=== PATIENT | female | born 1940 | race Caucasian/White ===

== ENCOUNTER → 2020-01-10 | Outpatient (CLI) | payer MEDICARE, OTHER ==
[2020-01-10 18:42] LABS: Bun/Creatinine Ratio 24.3 (12.0-20.0); Calcium, Blood 9.4 mg/dL (8.5-10.1); Creatinine, Blood 1.03 mg/dL (0.40-1.00); Potassium, Blood 3.9 mmol/L (3.5-5.5)
== END | disposition home or self-care (01) ==
LOC: LAB SHORT 18:31 → LAB EV 18:31
PROVIDERS: Physician Assistant Medical
DX: I10 Essential (primary) hypertension (principal)
CPT/HCPCS: 80048

== ENCOUNTER → 2020-04-18 | Outpatient (CLI) | payer MEDICARE, OTHER ==
[2020-04-18 10:59] LABS: Calcium, Blood 9.3 mg/dL (8.5-10.1); Creatinine, Blood 1.39 mg/dL (0.40-1.00); Potassium, Blood 3.8 mmol/L (3.5-5.5)
== END | disposition home or self-care (01) ==
LOC: LAB EV 10:46 → LAB SHORT 10:46
PROVIDERS: Physician Assistant
DX: I10 Essential (primary) hypertension (principal); R73.9 Hyperglycemia, unspecified
CPT/HCPCS: 80048; 83036

== ENCOUNTER → 2020-06-26 | Outpatient (CLI) | payer MEDICARE, OTHER ==
[2020-06-30 11:45] LABS: Stool Occult Bld Immuno 1 Negative (NEGATIVE)
== END ==
LOC: PLD 23:30 → LAB SHORT 23:30
PROVIDERS: Nurse Practitioner Family
DX: Z12.11 Encounter for screening for malignant neoplasm of colon (principal)
CPT/HCPCS: G0328

== ENCOUNTER → 2020-11-15 | Outpatient (CLI) | payer MEDICARE, OTHER ==
[2020-11-15 11:55] LABS: Microalbumin, Urine Quant. 14.5 mg/L (0.000-20.000); Protein, Urine Quantitative 19.4 mg/dL (0.0-11.9)
== END | disposition home or self-care (01) ==
LOC: LAB 07:00 → LAB SHORT 07:00
PROVIDERS: Internal Medicine Nephrology
DX: N18.30 Chronic kidney disease, stage 3 unspecified (principal); D63.1 Anemia in chronic kidney disease; N25.81 Secondary hyperparathyroidism of renal origin; E55.9 Vitamin D deficiency, unspecified; E78.00 Pure hypercholesterolemia, unspecified; D51.8 Other vitamin B12 deficiency anemias; D52.8 Other folate deficiency anemias; D50.9 Iron deficiency anemia, unspecified; R76.9 Abnormal immunological finding in serum, unspecified; R94.5 Abnormal results of liver function studies; R94.6 Abnormal results of thyroid function studies
CPT/HCPCS: 81050; 82043; 82570; 84156

== ENCOUNTER 2021-10-16 13:27 | Inpatient (IN) | payer MEDICARE, OTHER ==
[~2021-10-16] VITALS: Ht 162.6 cm; Wt 98.4 kg
[2021-10-16 15:45] LABS: BASOPHILS ABSOLUTE AUTO 0.03 K/mm3 (0.00-0.23); BASOPHILS PERCENT AUTO 1 % (0-2); EOSINOPHILS ABSOLUTE AUTO 0.05 K/mm3 (0.00-0.68); EOSINOPHILS PERCENT AUTO 1 % (0-6); Hematocrit 38.3 % (33.0-51.0); Hemoglobin 11.9 g/dL (11.5-16.0); IMMATURE GRAN ABSOLUTE AUTO 0.01 K/mm3 (0.00-0.10); IMMATURE GRAN PERCENT AUTO 0 % (0-1); LYMPHOCYTES ABSOLUTE AUTO 0.42 K/mm3 (0.84-5.20); LYMPHOCYTES PERCENT AUTO 11 % (21-46); MONOCYTES ABSOLUTE AUTO 0.22 K/mm3 (0.16-1.47); MONOCYTES PERCENT AUTO 6 % (4-13); Mean Corpuscular HGB 26.2 pg (26.0-34.0); Mean Corpuscular HGB Conc 31.1 g/dL (31.5-36.5); Mean Corpuscular Volume 84 fL (80-100); Mean Platelet Volume 12.1 fL (9.1-12.4); NEUTROPHILS ABSOLUTE AUTO 3.25 K/mm3 (1.96-9.15); NEUTROPHILS PERCENT AUTO 82 % (41-73); Platelet Count 106 K/mm3 (150-400); RDW Coefficient Variation 16.1 % (11.7-14.2); RDW Standard Deviation 49.8 fL (35.1-46.3); Red Blood Cell Count 4.55 M/mm3 (3.80-5.20); White Blood Cell Count 3.98 K/mm3 (4.00-11.30)
[2021-10-16 15:59] LABS: Albumin, Blood 2.9 g/dL (3.4-5.0); Albumin/Globulin Ratio 0.6 (0.8-1.8); Bilirubin, Total 0.6 mg/dL (0.1-1.0); Bun/Creatinine Ratio 35.4 (12.0-20.0); Calcium, Blood 9.5 mg/dL (8.5-10.1); Creatinine, Blood 0.93 mg/dL (0.40-1.00); Globulin, Blood 4.6 g/dL (2.2-4.0); Potassium, Blood 3.9 mmol/L (3.5-5.5); Total Protein, Blood 7.5 g/dL (6.4-8.2)
[2021-10-16 20:31] LABS: Source, Urine Clean Catch
[2021-10-16 20:34] LABS: Bilirubin, Urine Neg (Neg); Blood, Urine 2+ (Neg); Glucose Qualitative, Urine Neg (Neg); Ketones, Urine 1+ (Neg); Leukocyte Esterase, Urine 1+ (Neg); Nitrite, Urine Pos (Neg); Protein, Urine 1+ (Neg); Urobilinogen, Urine NORM (Normal)
[2021-10-16 20:42] LABS: Appearance, Urine Hazy (Clear); Color, Urine Yellow (P-Yellow)
[2021-10-16 20:43] LABS: Amorphous Light (0-Heavy); Bacteria Many /hpf; Squamous Epithelial Cells Rare /hpf (Few); Transitional Epithelial Cells Few /hpf (0-Rare)
[2021-10-17 00:10] LABS: C-REACTIVE PROTEIN, EXT RANGE 4.8 mg/dL (0.000-0.300)
--- NOTE | 2021-10-17 01:15 | NUR ---
ADMIT ASSESSMENT: PT ADMITTED TO ICU 3. PT AROUSABLE, BUT LOOKS AT YOU VERY CONFUSED AND NOT FOLLOWING DIRECTIONS AND NOT ASWERING QUESTIONS. MANPREET AT 2MM BILAT AND SLUGGISH. LS DIMINISHED T/O WITH EXP WHEEZES BILAT BASES WITH BIOX 94% ON RA. HEART SOUNDS DISTANT WITH MONIOTR SHOWING SR WITH 1ST DEGREE BLOCK AND BBB AND PROLONGED QT WITH HR 72. SKIN WARM WITH MULTIPLE WOUNDS ON FACE, ARMS LEGS AND GROIN. WAS TAKEN FOR CT OF HEAD AND BILAT LE'S. TEMP 93.5 WITH SCOTT HUGGER ON AND RUNNING. 20G IV LAC WITH NS BOLUS AND VANCO RUNNING. 20G IV RAC S/L. STRONG RADIAL PULSES BILAT. BILAT DP AND PT PULSES WITH DOPPLER ONLY. BILAT HAND EDEMA 2+ WITH RED HANDS. BILAT LE EDEMA 3+ AND RED. ABD R/S WITH BTX4. MARSH TEMP PROBE IN AND DRAINING DARK YELLOW URINE. BROUGHT SON, FILOMENA, BACK TO GET INFO FROM HIM AND HAVE HIM SIGN FORMS. ASKED PT IF SHE RECOGNIZED WHO HE WAS, SHE NODDED YES AND SAID YES. WHEN ASKED IF SHE KNEW WHERE SHE WAS, SHE QUIETLY SPOKE THE HOSPITAL. WHEN ASKED WHO THE PRESIDENT WAS SHE COULDN'T ANSWER ME. I ASKED HER IF IT WAS [facility], SHE SAID NO, THEN THE SON ASKED HER IF IT WAS SIL[facility], SHE SMILED AND SAID YES. PT'S MENTAION SLOWLY IMPROVING.
[2021-10-17 01:19] LABS: Free Thyroxine 1.03 ng/dL (0.70-1.60); Thyroid Stimulating Hormone 3.54 uIU/mL (0.360-4.800)
[2021-10-17 01:53] LABS: BASOPHILS ABSOLUTE AUTO 0.02 K/mm3 (0.00-0.23); BASOPHILS PERCENT AUTO 1 % (0-2); EOSINOPHILS ABSOLUTE AUTO 0.03 K/mm3 (0.00-0.68); EOSINOPHILS PERCENT AUTO 1 % (0-6); Hematocrit 33.7 % (33.0-51.0); Hemoglobin 10.6 g/dL (11.5-16.0); IMMATURE GRAN ABSOLUTE AUTO 0.01 K/mm3 (0.00-0.10); IMMATURE GRAN PERCENT AUTO 0 % (0-1); LYMPHOCYTES ABSOLUTE AUTO 0.41 K/mm3 (0.84-5.20); LYMPHOCYTES PERCENT AUTO 14 % (21-46); MONOCYTES ABSOLUTE AUTO 0.13 K/mm3 (0.16-1.47); MONOCYTES PERCENT AUTO 5 % (4-13); Mean Corpuscular HGB Conc 31.5 g/dL (31.5-36.5); Mean Corpuscular Volume 83 fL (80-100); Mean Platelet Volume 12.9 fL (9.1-12.4); NEUTROPHILS ABSOLUTE AUTO 2.32 K/mm3 (1.96-9.15); NEUTROPHILS PERCENT AUTO 80 % (41-73); Platelet Count 85 K/mm3 (150-400); RDW Coefficient Variation 16.1 % (11.7-14.2); RDW Standard Deviation 48.8 fL (35.1-46.3); Red Blood Cell Count 4.07 M/mm3 (3.80-5.20); White Blood Cell Count 2.92 K/mm3 (4.00-11.30)
[2021-10-17 02:07] LABS: Albumin, Blood 2.4 g/dL (3.4-5.0); Albumin/Globulin Ratio 0.6 (0.8-1.8); Bilirubin, Total 0.5 mg/dL (0.1-1.0); Calcium, Blood 8.8 mg/dL (8.5-10.1); Creatinine, Blood 0.91 mg/dL (0.40-1.00); Globulin, Blood 3.7 g/dL (2.2-4.0); Potassium, Blood 3.8 mmol/L (3.5-5.5); Total Protein, Blood 6.1 g/dL (6.4-8.2)
[2021-10-17 02:37] LABS: U Amphetamine Screen Not Detected; U Barbituate Screen Not Detected; U Benzodiazapine Screen Not Detected; U Buprenorphine Screen Not Detected; U Cannabinoids Screen Not Detected; U Cocaine Screen Not Detected; U Methadone Screen Not Detected; U Methamphetamine Screen Not Detected; U Opiates Screen Not Detected; U Oxycodone Screen Not Detected; U Phencyclidine Screen Not Detected; U Propoxyphene Screen Not Detected
--- NOTE | 2021-10-17 06:05 | NUR ---
SHIFT SUMMARY: PT RESTING COMFORTABLY THROUGHOUT THE NIGHT WITH INTERMITTENT MOANS. DENIES PAIN WHEN AROUSED. TAKE A BIT TO FULLY AROUSE, BUT FALLS BACK ASLEEP QUICKLY. BP'S HAVE BEEN SBP 80'S-100'S. NOTIFIYIN DR. RAMOS OF BP'S FALLING. ORDER FOR 500CC IV BOLUS.
--- NOTE | 2021-10-17 08:30 | NUR ---
AM NOTE.... ASSUMED CARE OF PT AT 0700, THE PT IS RESPONDING TO VERBAL STIMULI BUT NOT ANSWERING QUESTIONS THE PT LOOKS AT STAFF WITH A BLANK STARE. THE PT IS UNABLE TO FOLLOW COMMANDS SUCH SQUEEZE MY HANDS OR WRIGGLE YOUR TOES. THE PT IS IN SR IN THE 70'S W/ FIRST DEGREE AND BBB WITH OCC PCVs. THE PT HAS 3+ PITTING EDEMA TO HER BLE WELL SEVERAL WOUNDS (SEE PICTURES IN THE CHART). THE PT IS ON RA WITH O2 SATS >90% L/S DIM T/O COARSE IN THE BASES RR 18-20. BT PRESENT AND VERY HYPOACTIVE, ABD IS SOFT AND NONTENDER TO PALPATION. THE PT'S MARSH IS PATENT AND DRAINING TO GRAVITY. THE PT'S BPs HAVE BEEN SOFT BUT STABLE. WILL CONTINUE TO MONITOR.
--- NOTE | 2021-10-17 09:48 | NUR ---
PT UPDATE.... THE PT'S TEMP FROM THE TEMP MARSH 95.0 THE PT'S TEMPORAL TEMP WAS 96.9 A SCOTT HUGGER WAS PLACED ON THE PT. SEVERAL FAMILY MEMBERS AT THE BEDSIDE THIS AM THEY WERE UPDATED BY THIS RN ON THE PT'S CONDITION AND PLAN OF CARE. AT 0830: DR. LYNNE AT THE BEDSIDE TO ASSESS THE PT, NEW ORDERS OBTAINED FOR SILVADENE CREAM FOR THE WOUNDS ON THE PT'S BLE. WILL CONTINUE TO MONITOR.
--- NOTE | 2021-10-17 10:57 | NUR ---
Pt resting in bed with her eyes closed and remains with her eyes closed throughout the visit. Pt's son Joey, and Pt's grandson Adam at bedside. Primary RN Magaly and clinical nursing manager at bedside. Magaly provides update and answers questions. Joey reports Pt lives at home with her youngest daughter. He reports youngest daughter struggles with some emotional and mental issues. He states that she probably isn't the best candidate to continue caring for Pt. He reports Pt has invested in assisted insurance which will assist with caregiver support or placement. Discussed Pt's code status. Educated on life sustaining treatment including risk factors and implications of CPR. Joey reports plan to discuss further with his sister (Pt's oldest daughter) when she arrives to the hospital. Continued therapeutic listening. Palliative Care will remain available.
--- NOTE | 2021-10-17 11:32 | NUR ---
PT UPDATE.... WHILE THE PT WAS SLEEPING THE PT HAD AN APNEIC EPISODE OF APROX 30 SECONDS, THE PT'S O2 SATS DROPPED DOWN TO 69% WITH A GOOD WAVE FORM. THE PT WAS PLACED ON 5L NC VIA THE MOUTH TO IMPOVE HER O2 SATS, ONCE THEY WERE IMPROVED TO >90% THE O2 WAS TITRATED DOWN TO 2L NC WITH O2 SATS >90%. WILL CONTINUE TO MONITOR.
--- NOTE | 2021-10-17 12:51 | NUR ---
Spiritual Care Visit... Pt. is mostly unresponsive. Responding to a spiritual care request. Pts. son and grandson are present. Pt. displays evidence of awareness, but cannot communicate. Pts. son verbalized that this foster a decline in the pts. condition since previous day. Facilitate a life review. Family have strong ede support systems. Prayed with family. Family verbalized gratitude for the spiritual care visit.
--- NOTE | 2021-10-17 18:10 | NUR ---
SHIFT SUMMARY.... AT APROX 1400 THE PT WAS GIVEN A BED BATH AND THE PT'S DRESSINGS WERE CHANGED, DURING THIS THE PT STARTED TO WAKE UP MORE AND WAS ABLE TO ANSWER QUESTIONS. THE PT'S VS HAVE IMPROVED T/O THIS SHIFT. THE PT WAS GIVEN A BEDSIDE SWALLOW EVAL AND PASSED. THE PT'S FAMILY HAS BEEN AT THE BEDSIDE MOST OF THIS SHIFT. THE PT HAS NOT HAD A BM. AT APROX 1645 THE PT'S CBG WAS CHECKED AND IT WAS CRITIALLY LOW AT 38 SHE WAS GIVEN 500MLS OF D5 IV AND SOME ORANGE JUICE. THE PT HAS NOT HAD A BM THIS SHIFT. WILL CONTINUE TO MONITOR UNTIL REPORT IS GIVEN TO ONCOMING RN.
--- NOTE | 2021-10-17 19:30 | NUR ---
ASSUMPTION OF CARE NOTE PT TEMP VIA MARSH 94.5. SCOTT OLIVAS PLACED ON PT. FAMILY AT BEDSIDE.
[2021-10-17 22:39] LABS: Vancomycin, Trough 21.9 ug/mL (5.0-10.0)
--- NOTE | 2021-10-18 01:29 | NUR ---
PT MIDNIGHT BLOOD GLUCOSE IN THE 30S. DR RANGEL NOTIFIED. ORDERS GIVEN. SUBSEQUENT BLOOD GLUCOSE AT 0118 56, D5 CONTINUES TO INFUSE PER MD ORDER.
[2021-10-18 03:18] LABS: BASOPHILS ABSOLUTE AUTO 0.03 K/mm3 (0.00-0.23); BASOPHILS PERCENT AUTO 1 % (0-2); EOSINOPHILS ABSOLUTE AUTO 0.02 K/mm3 (0.00-0.68); EOSINOPHILS PERCENT AUTO 1 % (0-6); Hematocrit 33.5 % (33.0-51.0); Hemoglobin 10.6 g/dL (11.5-16.0); IMMATURE GRAN ABSOLUTE AUTO 0.01 K/mm3 (0.00-0.10); IMMATURE GRAN PERCENT AUTO 0 % (0-1); LYMPHOCYTES ABSOLUTE AUTO 0.46 K/mm3 (0.84-5.20); LYMPHOCYTES PERCENT AUTO 14 % (21-46); MONOCYTES ABSOLUTE AUTO 0.21 K/mm3 (0.16-1.47); MONOCYTES PERCENT AUTO 6 % (4-13); Mean Corpuscular HGB 26.5 pg (26.0-34.0); Mean Corpuscular HGB Conc 31.6 g/dL (31.5-36.5); Mean Corpuscular Volume 84 fL (80-100); NEUTROPHILS ABSOLUTE AUTO 2.63 K/mm3 (1.96-9.15); NEUTROPHILS PERCENT AUTO 78 % (41-73); Platelet Count 87 K/mm3 (150-400); RDW Coefficient Variation 16.7 % (11.7-14.2); RDW Standard Deviation 50.9 fL (35.1-46.3); White Blood Cell Count 3.36 K/mm3 (4.00-11.30)
[2021-10-18 03:19] LABS: Mean Platelet Volume 11.9 fL (9.1-12.4)
[2021-10-18 03:31] LABS: Bun/Creatinine Ratio 28.6 (12.0-20.0); Calcium, Blood 8.3 mg/dL (8.5-10.1); Creatinine, Blood 1.12 mg/dL (0.40-1.00)
--- NOTE | 2021-10-18 04:30 | NUR ---
DR RAMOS NOTIFIED OF PT DROPPING GLUCOSE AND LOW URINE OUTPUT. ORDERS GIVEN. SEE EMAR
--- NOTE | 2021-10-18 06:29 | NUR ---
DR RAMOS NOTIFIED OF CRITICAL LOW BLOOD GLUCOSE. ORDERS GIVEN. SEE EMAR
[2021-10-18] MEDS ORDERED: FURO20 PO (07:34)
[2021-10-18] MEDS ORDERED: LOSARTAN POTAS100 M1 PO (07:34)
[2021-10-18] MEDS ORDERED: METO50ER PO (07:35)
[2021-10-18] MEDS ORDERED: Amaryl1 MG PO (07:35)
[2021-10-18] MEDS ORDERED: TRIA50 PO (07:36)
[2021-10-18] MEDS ORDERED: CALC.25 PO (07:36)
[2021-10-18] MEDS ORDERED: POTA10T PO (07:37)
--- NOTE | 2021-10-18 07:58 | NUR ---
AM NOTE... ASSUMED CARE OF PT AT 0700, THE PT IS RESPONDING TO PAINFUL STIMULI WITH MOANS AND GROSS MOVEMENT OF HER ARMS, THE PT DOES ATTEMPT TO OPEN HER EYES BUT IS UNABLE TO FOCUS FOR FOLLOW COMMANDS. THE PT IS ON 2L NC WITH O2 SATS >92% L/S EXP WHEEZES HEARD T/O THE UPPER AND RIGHT MID LOBE AND DIM IN THE BILATERAL LOWER LOBES, THE PT'S RR IS 18-20 AND SHALLOW. THE PT IS IN SR W/FIRSTDEGREE, BBB AND OCC PVCs IN THE 60'S-70'S, THE PT'S BP IS SOFT BUT MAPS ARE >65 BUT SOME SBPs ARE 80'S-90'S. THE PT HAS 4+ EDEMA TO HER BLE, THIS HAS INCREASED FROM YESTERDAY, THE PT'S WOUNDS ARE WHEEPING MORE THAN YESTERDAY AND THIS RN HAS NOTED MORE OF THE PT'S DRY SCABS HAVE BECOME WET AND WHEEPY. THE BOTTOM PART OF THE LARGE BLISTER ON THE TOP OF THE PT'S LEFT GREAT TOE HAS STARTED TO DRAIN. BT PRESENT AND VERY HYPOACTIVE, ABD IS SOFT BUT TENDER TO PALPATION. THE PT'S MARSH IS PATENT AND DRAINING TO GRAVITY. WILL CONTINUE TO MONITOR.
--- NOTE | 2021-10-18 17:40 | NUR ---
SHIFT SUMMARY.... NO ACUTE NEGATIVE CHANGES NOTED THIS SHIFT. THE PT'S VS HAVE BEEN STABLE T/O THIS SHIFT. THE PT HAS BEEN AWAKE AND INTERACTING WITH HER FAMILY AND STAFF SINCE LATE THIS MORNING. THE PT'S DRESSINGS ON HER LEGS WERE CHANGED BY THIS RN AND SHE WAS GIVEN A BED BATH/LINEN CHANGE. THE PT WAS CHANGED TO AN ADA REGULAR DIET AND HAS BEEN TOLERATING THIS WELL. SHE IS STILL ON A D5 W/ 1/2 NS RUNNING AT 75MLS/HR THE PT'S LAST CBG WAS 81. THE PT'S MARSH IS PATENT AND DRAINING TO GRAVITY, SHE HAS NOT HAD A BM THIS SHIFT. THE PT IS TO BE NPO AFTER MIDNIGHT FOR A HIDA SCAN AT 0800 TOMORROW. THE PT WAS ABLE TO FEED HERSELF DINNER WITH MINIMAL HELP FROM STAFF OR FAMILY. THE PT HAS BEEN TURNED Q2 HRS THIS SHIFT. CALL LIGHT IN REACH WILL CONTINUE TO MONITOR UNTIL REPORT IS GIVEN TO ON COMING RN.
--- NOTE | 2021-10-18 18:36 | NUR ---
PT UPDATE.... WHILE DOING WOUND CARE THIS RN WAS CLEANING THE WOUNDS ON THE PT'S BLE, THIS RN WAS USING WOUND CLEANSER SPRAY AND NOTICED THAT THE SCABS THAT HAD SLOUGHED OFF WERE FULL OF A LARGE AMOUNT OF LONG CAT HAIR, FAMILY VERIFIED THAT THE PT DID HAVE A CAT. LARGE AMOUNTS OF CAT HAIR WAS NOTICED IN ALL OF THE PT'S WOUNDS. WILL CONTINUE TO MONITOR.
--- NOTE | 2021-10-18 20:00 | NUR ---
Assumed care after report recieved. Family at bedside, left for night. Assessment complete. discussed plan of care for night. able to answer orientation questions but does not recall anything leading up to hospitalization. Slow to respond to questions.
[2021-10-19 05:38] LABS: Vancomycin, Trough 25.1 ug/mL (5.0-10.0)
--- NOTE | 2021-10-19 05:54 | NUR ---
Blood sugars stable through out shift. Dressings changed to bilat lower extremities at beginning of shift. Temp at start of shift low, warming blanket applied. Temp increased to 97 degrees. Vanco trough this am high. Order to dc this am dose of vanco recieved from pharmacist.
--- NOTE | 2021-10-19 08:38 | NUR ---
0730: RN COMPLETED SBAR REPORT. ASSUMED CARE OF PT. 0745: CONTACTED DR. SANCHEZ WHO STATES NO NEED AT THIS TIME TO MEDICATE PRIOR TO HIDA SCAN. NUCLEAR RAD NOTIFIED; STEEL TURNER AT BEDSIDE. UTILIZED LIFT TO TRANSFER PT TO STRETCHER, PT TOLERATED WELL. TELE NOTIFIED TO MONITOR PT DURING SCAN. PT AAOX4, DENIES PAIN, PLEASANT, FOLLOWS COMPLEX COMMANDS. NO DISTRESS NOTED. PT TO NRAD FOR SCAN.
--- NOTE | 2021-10-19 10:24 | NUR ---
0935: PT RETURNED FROM HIDA SCAN, TOLERATED WELL. NO DISTRESS NOTED, VSS.
--- NOTE | 2021-10-19 17:15 | NUR ---
SHIFT SUMMARY NEURO: PT ALERT AND ORIENTED X 4, CONVERSIVE, COOPERATIVE, PLEASANT AFFECT, DENIED PAIN THROUGHOUT SHIFT. FOLLOWING COMPLEX COMMANDS. CARDIAC: 1ST DEG HB W/ BBB CONTINUES. NORMOTENSIVE. AFEBRILE, TEMP NOW WNL AFTER USING SCOTT HUGGER UNTIL 1200. VANC TROUGH TONIGHT AT 2100. ZOSYN CONTINUES. BGL BETWEEN 100-129 THROUGHOUT SHIFT. RESP: RA. OCCASIONAL NONPRODUCTIVE COUGH. SPO2 96%. GI: NO BM TODAY. NPO, CALLED DR. CUEVA AND LEFT MESSAGE BEFORE 1700 TO REQUEST DIETARY ORDER CHANGE CONSIDERATION. NO RESPONSE YET OF THIS WRITING. HIDA SCAN WITH RESULTS NOT REQUIRING ACUTE INTERVENTION PER VERBAL DISCUSSION WITH DR. GLYNN. : 450 UOP DURING SHIFT. URINE STILL CLOUDY/SEDIMENTARY. INTEG: BETADINE APPLIED TO WOUNDS. SILVADENE TO OPEN WOUNDS. CHECKED WOUNDS TO BILATERAL LEGS, DRESSINGS REMAIN IN PLACE. FULL BEDBATH PERFORMED WITH ANTIFUNGAL POWDER TO GROIN/LEGS. MK: PHYSICAL THERAPY PERFORMED WITH KAREL, PT TOLERATED WELL. PLAN FOR DISCHARGE TO REHAB FACILITY. PSYCH: FAMILY PRESENT THROUGHOUT SHIFT. NO IMMEDIATE CONCERNS.
--- NOTE | 2021-10-19 18:26 | NUR ---
DR. CUEVA CALLED AND REQUESTED PLACEMENT OF REGULAR DIET ORDER AND TO DISCONTINUE D5 1/[address] NS ORDER FOR CARRIER.
--- NOTE | 2021-10-19 23:40 | NUR ---
summary of care: assessment complete. more alert tonight. wound care done to bilat lower extremities. left heel slight blanchable redness. bilat heel protectors applied. feet floated on pillows. advised patient and called son Mikhail to advise will transfer to medical floor room 341. Anette HARVEY called and report given. Transferred via bed to room 341
--- NOTE | 2021-10-19 23:54 | NUR ---
ASSUMED CARE OF THE PATIENT WHEN TRANSFERRED TO ROOM 341. SHE IS AWAKE, ALERT, AND ORIENTED. DENIES PAIN OR SHORTNESS OF BREATH.
--- NOTE | 2021-10-20 05:31 | NUR ---
SHIFT SUMMARY PATIENT ALERT AND ORIENTED. HAD NO COMPLAINTS OF PAIN OR SHORTNESS OF BREATH. NO ACUTE ISSUES NOTED OVERNIGHT. CALL LIGHT WITHIN REACH. REPORT GIVEN TO ONCOMING RN.
[2021-10-20 08:31] LABS: BASOPHILS ABSOLUTE AUTO 0.03 K/mm3 (0.00-0.23); BASOPHILS PERCENT AUTO 1 % (0-2); EOSINOPHILS ABSOLUTE AUTO 0.06 K/mm3 (0.00-0.68); EOSINOPHILS PERCENT AUTO 2 % (0-6); Hematocrit 36.2 % (33.0-51.0); Hemoglobin 11.2 g/dL (11.5-16.0); IMMATURE GRAN ABSOLUTE AUTO 0.01 K/mm3 (0.00-0.10); IMMATURE GRAN PERCENT AUTO 0 % (0-1); LYMPHOCYTES ABSOLUTE AUTO 0.57 K/mm3 (0.84-5.20); LYMPHOCYTES PERCENT AUTO 20 % (21-46); MONOCYTES ABSOLUTE AUTO 0.29 K/mm3 (0.16-1.47); MONOCYTES PERCENT AUTO 10 % (4-13); Mean Corpuscular HGB 26.4 pg (26.0-34.0); Mean Corpuscular HGB Conc 30.9 g/dL (31.5-36.5); Mean Corpuscular Volume 85 fL (80-100); Mean Platelet Volume 12.2 fL (9.1-12.4); NEUTROPHILS ABSOLUTE AUTO 1.94 K/mm3 (1.96-9.15); NEUTROPHILS PERCENT AUTO 67 % (41-73); Platelet Count 90 K/mm3 (150-400); RDW Standard Deviation 52.6 fL (35.1-46.3); Red Blood Cell Count 4.25 M/mm3 (3.80-5.20)
[2021-10-20 08:53] LABS: Bun/Creatinine Ratio 34.9 (12.0-20.0); Calcium, Blood 8.2 mg/dL (8.5-10.1); Creatinine, Blood 1.09 mg/dL (0.40-1.00); Potassium, Blood 3.9 mmol/L (3.5-5.5)
--- NOTE | 2021-10-20 14:18 | NUR ---
[facility] visit for advanced care planning conversation and assessment of s/s. Son, Mikhail, at bedside and gson also present. Pt receptive to conversation about her wishes and Son very interested in completing an AD and POLST. Pt states her Dr gave her a POLST previously but she didn't really know how to complete it. Pt denies pain or any other distressing s/s . I do not see any nonverbal indicators of pain, anxiety or distress. She is sleepy (after lunch) and dozes off at times but is easy to wake when son nudges her. Prior to my visit I case conferenced with KATHI BANKS on plan for relocating pt to [place] in an assisted living or other LTC facility. Son and pt confirm this plan during our conversation re: pt's wishes for care in the event she would suffer cardiac or respiratory failure. Pt and Mikhail would like to discuss further with Jerica coyle and revisit this tomorrow. I gave both a POLST and AD form with some instruction and explanation. I also gave them booklet, Hard Choices for [place] [employer] to review and generate further questions for their providers to help pt/family make decisions re: advanced care planning wishes. Plan to see pt again tomorrow.
--- NOTE | 2021-10-21 03:29 | NUR ---
FINGER WAVER SUMMARY REMAINS ON BEDREST SHE IS VERY WEAK IN HER LEGS. FEET ELEVATED ON PILLOW TO DECREASE SWELLING. ANTIBIOTICS ADMINISTERED ORDERED - SEE MAR FOR DETAILS. INCONT OF FECES AND CLEANED. GROIN AREA REMAINS REDDENED AND CREAM APPLIED. MARSH DRAINING VICENTA. HAS BEEN RESTING QUIETLY WITH FEW INTERRUPTIONS THIS SHIFT. CALL LIGHT IN REACH
[2021-10-21 05:29] LABS: BASOPHILS ABSOLUTE AUTO 0.03 K/mm3 (0.00-0.23); BASOPHILS PERCENT AUTO 1 % (0-2); EOSINOPHILS ABSOLUTE AUTO 0.05 K/mm3 (0.00-0.68); EOSINOPHILS PERCENT AUTO 2 % (0-6); Hematocrit 36.7 % (33.0-51.0); Hemoglobin 11.2 g/dL (11.5-16.0); IMMATURE GRAN ABSOLUTE AUTO 0.03 K/mm3 (0.00-0.10); IMMATURE GRAN PERCENT AUTO 1 % (0-1); LYMPHOCYTES ABSOLUTE AUTO 0.45 K/mm3 (0.84-5.20); LYMPHOCYTES PERCENT AUTO 16 % (21-46); MONOCYTES ABSOLUTE AUTO 0.26 K/mm3 (0.16-1.47); MONOCYTES PERCENT AUTO 9 % (4-13); Mean Corpuscular HGB 25.7 pg (26.0-34.0); Mean Corpuscular HGB Conc 30.5 g/dL (31.5-36.5); Mean Corpuscular Volume 84 fL (80-100); Mean Platelet Volume 12.5 fL (9.1-12.4); NEUTROPHILS ABSOLUTE AUTO 2.04 K/mm3 (1.96-9.15); NEUTROPHILS PERCENT AUTO 72 % (41-73); Platelet Count 102 K/mm3 (150-400); RDW Coefficient Variation 17.2 % (11.7-14.2); RDW Standard Deviation 52.9 fL (35.1-46.3); Red Blood Cell Count 4.36 M/mm3 (3.80-5.20); White Blood Cell Count 2.86 K/mm3 (4.00-11.30)
[2021-10-21 05:52] LABS: Bun/Creatinine Ratio 39.6 (12.0-20.0); Calcium, Blood 8.6 mg/dL (8.5-10.1); Creatinine, Blood 1.06 mg/dL (0.40-1.00)
[2021-10-21 06:07] LABS: Vancomycin, Random 13.4 ug/mL
[2021-10-21 11:23] LABS: Influenza A, PCR NEGATIVE (NEGATIVE); Influenza B, PCR NEGATIVE (NEGATIVE); Resp Syncytial Virus, PCR NEGATIVE (NEGATIVE); SARS-Cov-2 (COVID-19) PCR, MMC NEGATIVE (NEGATIVE)
[2021-10-21] MEDS ORDERED: ANTIFUNGAL POWD71 GM TOP (12:01)
[2021-10-21] MEDS ORDERED: SILVADENE TOP (12:02)
[2021-10-21] MEDS ORDERED: SULTRIDS PO (12:02)
--- NOTE | 2021-10-21 13:00 | NUR ---
Follow up visit for POLST completion. Son and pt had completed a POLST form but upon review of options chosen with pt decision made by pt, with son's support for pt to be DNR, limited interventions and son listed as proxy medical decision maker if pt is unable to make her wishes known or is not able to process info/make decisions. Pt remained sleepy off and on t/o visit but did participate well. Student RN and KATHI BANKS present for part of the visit and confirmation of POLST wishes. New POLST completed and signed by Copy to medical records also. Pt leaving later this afternoon for SNF stay at [facility] per son. He is hopeful that he will be able to care for her in his [place] home after she regains some strength and endurance for safe transition to home setting. They have been exploring assisted living facilities in [facility] also. Code status change per Fully signed and completed POLST form. provided with copy per KATHI BANKS also. Son to keep original.
== END 2021-10-21 14:02 | DRG 871 ==
LOC: ER 13:27 → ICUW 23:37 → ICUE 23:37 → MEDS 10-19 23:32
PROVIDERS: Internal Medicine; Physician Assistant; Student in an Organized Health Care Education/Training Program; ADMIT Internal Medicine
PROC: 3E03329 Introduction of Other Anti-infective into Peripheral Vein, Percutaneous Approach (ICD-10-PCS; 2021-10-16)
PROC: 0HBLXZZ Excision of Left Lower Leg Skin, External Approach (ICD-10-PCS; principal; 2021-10-20)
PROC: 0HBKXZZ Excision of Right Lower Leg Skin, External Approach (ICD-10-PCS; 2021-10-20)
DX: A41.9 Sepsis, unspecified organism (principal); G93.41 Metabolic encephalopathy; L03.115 Cellulitis of right lower limb; L03.116 Cellulitis of left lower limb; K80.00 Calculus of gallbladder with acute cholecystitis without obstruction; T76.01XA Adult neglect or abandonment, suspected, initial encounter; N39.0 Urinary tract infection, site not specified; R65.20 Severe sepsis without septic shock; Z20.822 Contact with and (suspected) exposure to COVID-19; E66.9 Obesity, unspecified; M17.0 Bilateral primary osteoarthritis of knee; R41.82 Altered mental status, unspecified; I10 Essential (primary) hypertension; Z88.8 Allergy status to other drugs, medicaments and biological substances; E86.0 Dehydration; T68.XXXA Hypothermia, initial encounter; E11.649 Type 2 diabetes mellitus with hypoglycemia without coma; R15.9 Full incontinence of feces
CPT/HCPCS: 0241U; 36415; 51702; 70450; 71045; 73590; 73620; 73701; 76700; 78226; 80048; 80053; 80202; 81001; 82565; 82947; 83605; 83880; 84439; 84443; 84484; 85025; 86140; 87040; 87077; 87086; 87186; 93005; 93010; 93306; 93925; 93970; 94760; 96365; 96368; 96375; 97110; 97161; 97166; 97530; 99285-25; A9270; A9537; J1650; J1940; J2543; J3370; J7030; J7040; J7042; J7050; J7060; P9046; Q9967

== ENCOUNTER 2021-10-28 22:02 | Emergency (ER) | payer MEDICARE, OTHER ==
[~2021-10-28] VITALS: Ht 154.9 cm; Wt 83.9 kg
[~2021-10-28 22:02] MED LIST: ANTIFUNGAL POWD71 GM TOP; Amaryl1 MG PO; CALC.25 PO; FURO20 PO; LOSARTAN POTAS100 M1 PO; METO50ER PO; POTA10T PO; SILVADENE TOP; SULTRIDS PO; TRIA50 PO
[2021-10-28] MEDS ORDERED: DOXY100 PO (22:42)
[2021-10-28] MEDS ORDERED: Benadryl Itch28.3 G1 TOP (22:42)
== END 2021-10-29 00:14 | disposition home or self-care (01) ==
LOC: ER 22:02
DX: L30.9 Dermatitis, unspecified (principal); R23.8 Other skin changes; E11.9 Type 2 diabetes mellitus without complications; Z79.84 Long term (current) use of oral hypoglycemic drugs; Z88.8 Allergy status to other drugs, medicaments and biological substances
CPT/HCPCS: A9270

== ENCOUNTER 2021-12-10 13:40 | Inpatient (IN) | payer MEDICARE, OTHER ==
[~2021-12-10] VITALS: Ht 156.2 cm; Wt 92.5 kg
[~2021-12-10 13:40] MED LIST changes: -CEPH500; -ERGO50000 PO; -FURO20 PO; +FUROSEMIDE (LASIX) PO; +LOSA25 PO; -LOSARTAN POTAS100 M1 PO; -POTA10T PO; +POTCHL20ER PO
[2021-12-10] MEDS ORDERED: ERGO50000 PO (14:12)
[2021-12-10] MEDS ORDERED: CEPH500 (14:13)
--- NOTE | 2021-12-10 17:07 | NUR ---
Patient direct admit from [facility], arrived to medical floor at 1400. patient AOx4, pleasant/cooperative. Vitals stable, saturations stable on RA. Admit documentation showed CHF as reason for admission, pts son stated that the problem was "hallucinations, possible UTI, cellulitis infection". Called , student PA & KATHI MD came to bedisde to assess patient. MD ordered wound consult, IV lasix, daily weights to monitor fluid. Cleansed and took photos of wounds on legs. Bilateral thighs, back LE red/tissue is hard, also areas of macerated tissue. Moderate weeping. Bilateral feet, have small open macerated wounds, moderate serous drainage. Rewrapped legs with non-adherent dressing and kerlix. Encouraged pt to get in bed to elevated legs, pt stated sititng in W/C in more comfortable for her. Tele in place, prototype technician called & reported Vtach, currently NSR.
--- NOTE | 2021-12-11 04:32 | NUR ---
PT SLEPT THROUGH THE NIGHT, VSS. NO PRNS GIVEN.
[2021-12-11 04:44] LABS: BASOPHILS ABSOLUTE AUTO 0.08 K/mm3 (0.00-0.23); BASOPHILS PERCENT AUTO 2 % (0-2); EOSINOPHILS ABSOLUTE AUTO 0.36 K/mm3 (0.00-0.68); EOSINOPHILS PERCENT AUTO 8 % (0-6); Hematocrit 36.4 % (33.0-51.0); IMMATURE GRAN ABSOLUTE AUTO 0.01 K/mm3 (0.00-0.10); IMMATURE GRAN PERCENT AUTO 0 % (0-1); LYMPHOCYTES ABSOLUTE AUTO 0.69 K/mm3 (0.84-5.20); LYMPHOCYTES PERCENT AUTO 16 % (21-46); MONOCYTES ABSOLUTE AUTO 0.36 K/mm3 (0.16-1.47); MONOCYTES PERCENT AUTO 8 % (4-13); Mean Corpuscular HGB 26.7 pg (26.0-34.0); Mean Corpuscular HGB Conc 30.2 g/dL (31.5-36.5); Mean Corpuscular Volume 88 fL (80-100); Mean Platelet Volume 12.5 fL (9.1-12.4); NEUTROPHILS ABSOLUTE AUTO 2.82 K/mm3 (1.96-9.15); NEUTROPHILS PERCENT AUTO 65 % (41-73); Platelet Count 128 K/mm3 (150-400); RDW Coefficient Variation 21.1 % (11.7-14.2); RDW Standard Deviation 67.3 fL (35.1-46.3); Red Blood Cell Count 4.12 M/mm3 (3.80-5.20); White Blood Cell Count 4.32 K/mm3 (4.00-11.30)
[2021-12-11 05:07] LABS: Albumin, Blood 2.7 g/dL (3.4-5.0); Albumin/Globulin Ratio 0.6 (0.8-1.8); Bun/Creatinine Ratio 23.5 (12.0-20.0); Calcium, Blood 8.8 mg/dL (8.5-10.1); Creatinine, Blood 1.15 mg/dL (0.40-1.00); Globulin, Blood 4.2 g/dL (2.2-4.0); Potassium, Blood 3.8 mmol/L (3.5-5.5); Total Protein, Blood 6.9 g/dL (6.4-8.2)
[2021-12-11 18:45] LABS: Source, Urine Foley catheter
[2021-12-11 18:59] LABS: Appearance, Urine Clear (Clear); Bilirubin, Urine Neg (Neg); Blood, Urine Neg (Neg); Color, Urine Yellow (P-Yellow); Glucose Qualitative, Urine Neg (Neg); Ketones, Urine Neg (Neg); Leukocyte Esterase, Urine Neg (Neg); Nitrite, Urine Neg (Neg); Protein, Urine Neg (Neg); Specific Gravity, Urine 1.015 (1.003-1.022); Urobilinogen, Urine NORM (Normal)
--- NOTE | 2021-12-11 19:12 | NUR ---
PCU TRANSFER- PT NOTED TO HAVE TEMPERATURE OF 95.9 WITH AFTERNOON VS. ALL OTHER VS AT THIS TIME WNL. WARM BLANKETS PLACED AT THIS TIME. UPON RE-EVALUATION TEMPORAL TEMP OF 96.2 WITH ORAL THERMOMETER SHOWING 93.4. DR PICHARDO NOTIFIED AT THIS TIME AND BEAR HUGGER ORDERED. RECTAL TEMP COMPLETED WITH TEMP OF 94.9 AND BEAR HUGGER PLACED. PT HAS PREVIOUSLY BEEN AWAKE AND CONVERSATING WITH FAMILY. PT NOW DROWSY AND FAMILY REPORT SHE APPEARS TO BE HALLUCINATING. FAMILY STATES SHE DID THIS LAST TIME WHEN SHE WAS SEPTIC IN ICU APROX [address] PICHARDO NOTIFIED AND ORDERS RECEIVED TO TRANSFER TO PCU, TEMP MARSH, UA, CHEST XRAY AND BLOOD CX. PT TRANSFERED TO PCU AT 1835.
--- NOTE | 2021-12-12 04:24 | NUR ---
SHIFT SUMMARY PT DID NOT REST WELL THROUGH NIGHT. WAS INTERMITTENTLY CONFUSED BUT PLEASANT AND COOPERATIVE AT START OF SHIFT. BED ALARM ON. SHORTLY AFTER HER DAUGHTER LEFT, SHE BECAME PARANOID AND NOT EASILY DIRECTABLE. SHE WAS ADAMANT SHE SIT IN THE CHAIR AND BE LEFT ALONE. WE PLACED TAB ALARM UNDER PATIENT SHE WAS SITTING IN HER CHAIR. I CAME OUT OF ANOTHER PATIENT ROOM AND SAW THAT SHE WAS SITTING IN A RANDOM CHAIR IN THE HALLWAY ON THE UNIT. SHE WAS VERY CONFUSED AND NOT RESPONDING TO US. BECAUSE OF HER EXTREME PARANOIA AND NOT WILLING TO COOPERATE, PATIENT CALLED DAUGHTER TO COME GET HER. DAUGHTER IS AT BEDSIDE NOW AND PATIENT IS MORE CALM. TEMP IMPROVED VIA THE TEMP PROBE. PT REFUSING TO WEAR TELE, O2 >90% ON ROOM AIR. NO C/O PAIN. IS ABLE TO AMBULATE FAIRLY WELL. BLE WOUNDS, MAYBE CELLULITIS LEADING TO HER SEPSIS.
[2021-12-12 08:06] LABS: BASOPHILS ABSOLUTE AUTO 0.06 K/mm3 (0.00-0.23); BASOPHILS PERCENT AUTO 1 % (0-2); EOSINOPHILS ABSOLUTE AUTO 0.35 K/mm3 (0.00-0.68); EOSINOPHILS PERCENT AUTO 7 % (0-6); Hematocrit 35.1 % (33.0-51.0); IMMATURE GRAN ABSOLUTE AUTO 0.02 K/mm3 (0.00-0.10); IMMATURE GRAN PERCENT AUTO 0 % (0-1); LYMPHOCYTES ABSOLUTE AUTO 0.72 K/mm3 (0.84-5.20); LYMPHOCYTES PERCENT AUTO 15 % (21-46); MONOCYTES PERCENT AUTO 8 % (4-13); Mean Corpuscular HGB 27.4 pg (26.0-34.0); Mean Corpuscular HGB Conc 31.3 g/dL (31.5-36.5); Mean Corpuscular Volume 88 fL (80-100); Mean Platelet Volume 12.3 fL (9.1-12.4); NEUTROPHILS ABSOLUTE AUTO 3.21 K/mm3 (1.96-9.15); NEUTROPHILS PERCENT AUTO 67 % (41-73); Platelet Count 120 K/mm3 (150-400); RDW Coefficient Variation 20.9 % (11.7-14.2); RDW Standard Deviation 66.3 fL (35.1-46.3); Red Blood Cell Count 4.01 M/mm3 (3.80-5.20); White Blood Cell Count 4.76 K/mm3 (4.00-11.30)
[2021-12-12 08:12] LABS: Albumin, Blood 2.7 g/dL (3.4-5.0); Albumin/Globulin Ratio 0.7 (0.8-1.8); Bilirubin, Total 1.1 mg/dL (0.1-1.0); Calcium, Blood 8.8 mg/dL (8.5-10.1); Creatinine, Blood 1.2 mg/dL (0.40-1.00); Potassium, Blood 3.8 mmol/L (3.5-5.5); Total Protein, Blood 6.7 g/dL (6.4-8.2)
--- NOTE | 2021-12-12 13:48 | NUR ---
CARE NOTE THIS NURSE NOTIFIED DR. CORTES OF PT TEMPERATURE OF 94.8. ORDERS TO APPLLY WARM BLANKETS TO KEEP TEMP ABOVE 94.6. IF WARM BLANKETS ARE NOT EFFECTIVE IN KEEPING TEMPERATURE AT OR ABOVE 94.6, THEN ORDERS TO APPLY BEAR HUGGER GIVEN. TEMP MARSH IN PLACE, HEATING PAD WITH BLANKETS OVER IN PLACE. WILL CONTINUE TO MONITOR.
--- NOTE | 2021-12-12 14:24 | NUR ---
Spiritual Care Visit. Pt. is awake in bed. Daughter is also present. Daughter welcomes my visit. Pt. displays evidence of slight confusion. Facilitate a life history and establish rapport. Wound care nurse arrived to check pt. This fire fighter [employer] stepped out of room, but will return.
--- NOTE | 2021-12-12 14:59 | NUR ---
OKAY TO LEAVE LEGS DENA AT THIS TIME. MOISTUIRIZE AND FLOAT HEELS. RECOMMEND PT FOLLOW UP WITH WOUND CLINIC, HH, OR PCP FOR OUTPATIENT EDEMA MANAGEMENT. PT WILL NEED ATERIAL STUDIES AND WEEKLY FOLLOW UP FOR COMPRESSION WRAPS.
--- NOTE | 2021-12-12 18:27 | NUR ---
SHIFT SUMMARY PT WAS ALERT TO SELF AND DAUGHTER LAYO WHO WAS AT BEDSIDE FOR MAJORITY OF SHIFT. BP STABLE, HR RANGED FROM 56-60'S DURING SHIFT. SEE PREVIOUS NOTE REGARDING TEMPERATURE, TEMP IS NOW 96.1, MARSH TEMP PROBE IN PLACE. SHE HAS CONTINUED TO DENY CHEST PAIN/PRESSURE DURING SHIFT AND SPO2 99-100% VIA ROOM AIR. DAUGHTER LAYO REPORTED THAT THIS IS NOT THE PATIENTS BASELINE MENTATION AND THAT THE LAST TIME SHE WAS IN THE HOSPITAL THE PATIENT EXPERIENCED CONFUSION WELL. THIS AM PT WAS LETHARGIC BUT WAS MORE ALERT DURING AFTERNOON. SHE FOLLOWS DIRECTIONS APPROPRIATELY BUT APPEARS TO BE HALLUCINATING AT TIMES BY REACHING FOR ITEMS THAT DO NOT EXIST. TELE MONITORING IS IN PLACE. MARSH CATHETER IS IN PLACE AND DRAINING LIGHT YELLOW OUTPUT WITH GRAVITY. WOUND CLINIC RN EVALUTATED PT TODAY, HEEL PROTECTORS IN PLACE AND ANKLES ARE FLOATED. BILATERAL LOWER EXTREMETY SKIN IS TAUGHT, BLANCHABLE AND WHEEPING AT TIMES. MICHELLE Ramos RN ASSISTED THIS NURSE IN BILATERAL LOWER EXTREMETY WOUND CARE. IV IN RIGHT FOREARM IS SALINE LOCKED. NO OTHER ACUTE CHANGES NOTED. WILL CONTINUE TO MONITOR UNTIL REPORT GIVEN.
--- NOTE | 2021-12-12 21:38 | NUR ---
PT IS AGITATED AND IS NOT WANTING TO BE CARED FOR, WANTS TO GO HOME, PULLED IV AND WANTING TO GET OUT OF BED. CALLED DR CHAPPELL AND OBTAINED ORDER OF ZYPREXA PO 5-10MG, NOW. ORDER ENTERED.
--- NOTE | 2021-12-13 01:05 | NUR ---
CALLED DR RAMOS REGARDING PT UNABLE TO SLEEP AND BEING RESTLESS. MELATONIN 5MG PO NOW, ORDER OBTAINED. ENTERED INTO EMAR.
--- NOTE | 2021-12-13 05:44 | NUR ---
SHIFT SUMMARY PT ANSWERS A/O QUESTIONS CORRECTLY BUT AT TIMES IS CONFUSED AND HALLUCINATING. PT SEES OBJECTS AND PEOPLE IN ROOM SUCH HANKS AND RELATIVES NOT THERE. VITALS HAVE BEEN STABLE AND HAS REMAINED ON ROOM AIR WITH SATS ABOVE 92%. TEMP HAS REMAINED ABOVE 95.0 PER TEMP MARSH PROBE. MARSH IS DRAINING TO GRAVITY. PT DENIES CHEST PAIN/PRESSURE OR SOB. PT DENIES PAIN, ITCH, OR DISCMFORT IN BLE. PT WAS ABLE TO PIVOT TO BSC WITH MIN ASSIST. FAMILY REPORTED THAT PT HAD NOT HAD FOOD SLEEP SINCE ADMISSION. ORDER FOR SLEEP AID WAS OBTAINED BUT NOT GIVEN. PT REMAINED UNDISTURBED T/O THE NIGHT. BED ALARM HAS BEEN ACTIVE. DAUGHTER REMAINED AT BEDSIDE T/O THE NIGHT. CALL LIGHT IS WITHIN REACH. EARLY ON SHIFT PT GOT UP AND SET BED ALARM ON. SHE WAS AGITATED AND WANTED TO GO FOR A WALK AND REFUSED OTHERWISE. THIS NURSE NOTICED PT PULLED IV AND ASKED PT IF ANOTHER COULD BE STARTED PT REFUSED. PT REFUSED TO GET BACK INTO BED AND SAT AT THE EDGE WITH FAMILY. ZYPREXA WAS GIVEN AND PT'S MOOD WAS MORE COOPERATIVE.
--- NOTE | 2021-12-13 13:38 | NUR ---
CARE NOTE THIS NURSE APPLIED DESENEX OINTMENT TO OPEN WOUNDS ON BILATERAL LEGS PER EMAR. BARRIER CREAM ALSO APPLIED TO SCABBED AREAS THAT WERE LEAKING YESTERDAY TO KEEP SKIN INTACT. HEEL PROTECTORS IN PLACE AND HEELS ARE FLOATED ON PILLOW.
--- NOTE | 2021-12-13 18:48 | NUR ---
SHIFT SUMMARY PT HAS REMAINED ALERT TO SELF, LATER IN SHIFT SHE BECAME ALERT TO DAUGHTER LAYO WHO WAS AT BEDSIDE FOR MAJORITY OF SHIFT. FAMILY IS CONCERNED THAT PT HAS REMAINED CONFUSED EVEN AFTER ANTIBIOTIC THERAPY INITIATION BEING THAT THIS IS NOT THE PT'S BASELINE MENTATION. SHE HAS BEEN PLEASANT AND COOPERATIVE WITH CARE BUT IS CONFUSED. TEMPERATURE HAS IMPROVED TO 96.4, BP AND HR STABLE, SHE IS ON ROOM AIR AND SPO2 >95%. IV IN RIGHT AC IS SALINE LOCKED. MARSH CATHETER W/ TEMP PROBE IN PLACE AND DRAINING TO GRAVITY. OUTPUT IS CLEAR, LIGHT YELLOW. LASIX DOSE INCREASED TODAY, SEE EMAR. OCCUPATIONAL THERAPY EVALUATED TODAY, SEE NOTES. SHE IS UP IN CHAIR EATING DINNER NOW. NO OTHER ACUTE CHANGES NOTED. WILL CONTINUE TO MONITOR UNTIL REPORT GIVEN.
--- NOTE | 2021-12-13 21:56 | NUR ---
CALLED HAY PRADO REGARDING A ONE TIME DOSE OF ZYPREXA FOR NOC TIME SINCE PT HAS BEEN EXPERIENCING CONFUSION, HALLUCINATIONS AND AGITATION AND IS UNABLE TO REST AT NIGHT. PT RECIEVED DOSE PREVIOUS NIGHT AND HAD BETTER MOOD AND SLEPT T/O THE NIGHT. OBTAINED ZYPREXA 5MG PO 1X DOSE IF NEEDED. ENTERED IN EMAR.
--- NOTE | 2021-12-14 00:42 | NUR ---
PT TEMP STARTED DROPPING AFTER 2400. WARM BLANKETS HAVE BEEN ADDED WELL KPAD APPLIED. TEMP IS CURRENTLY AT 94.3. ATTEMPTING TO LOCATE BEAR HUGGER. PT IS ALERT AND WILL CONVERSE WITH STAFF AND SMILES, GOES BACK TO SLEEP. CALL LIGHT IS WITHIN REACH. BED ALARM ACTIVE. DAUGHTER AT BEDSIDE.
--- NOTE | 2021-12-14 02:10 | NUR ---
TEMP WAS 94.6 AND BEAR HUGGER APPLIED ONTO PT. WILL CONTINUE TO MONITOR.
[2021-12-14 04:00] LABS: BASOPHILS ABSOLUTE AUTO 0.06 K/mm3 (0.00-0.23); BASOPHILS PERCENT AUTO 2 % (0-2); EOSINOPHILS ABSOLUTE AUTO 0.32 K/mm3 (0.00-0.68); EOSINOPHILS PERCENT AUTO 8 % (0-6); Hematocrit 35.8 % (33.0-51.0); Hemoglobin 10.9 g/dL (11.5-16.0); IMMATURE GRAN ABSOLUTE AUTO 0.02 K/mm3 (0.00-0.10); IMMATURE GRAN PERCENT AUTO 1 % (0-1); LYMPHOCYTES ABSOLUTE AUTO 0.93 K/mm3 (0.84-5.20); LYMPHOCYTES PERCENT AUTO 24 % (21-46); MONOCYTES ABSOLUTE AUTO 0.31 K/mm3 (0.16-1.47); MONOCYTES PERCENT AUTO 8 % (4-13); Mean Corpuscular HGB 26.5 pg (26.0-34.0); Mean Corpuscular HGB Conc 30.4 g/dL (31.5-36.5); Mean Corpuscular Volume 87 fL (80-100); Mean Platelet Volume 12.5 fL (9.1-12.4); NEUTROPHILS ABSOLUTE AUTO 2.25 K/mm3 (1.96-9.15); NEUTROPHILS PERCENT AUTO 58 % (41-73); Platelet Count 127 K/mm3 (150-400); RDW Coefficient Variation 21.2 % (11.7-14.2); RDW Standard Deviation 67.1 fL (35.1-46.3); Red Blood Cell Count 4.11 M/mm3 (3.80-5.20); White Blood Cell Count 3.89 K/mm3 (4.00-11.30)
[2021-12-14 04:29] LABS: Albumin, Blood 2.6 g/dL (3.4-5.0); Albumin/Globulin Ratio 0.7 (0.8-1.8); Bilirubin, Total 0.9 mg/dL (0.1-1.0); Bun/Creatinine Ratio 25.2 (12.0-20.0); Calcium, Blood 8.9 mg/dL (8.5-10.1); Creatinine, Blood 1.23 mg/dL (0.40-1.00); Globulin, Blood 3.9 g/dL (2.2-4.0); Potassium, Blood 3.5 mmol/L (3.5-5.5); Total Protein, Blood 6.5 g/dL (6.4-8.2)
--- NOTE | 2021-12-14 06:27 | NUR ---
SHIFT SUMMARY PT HAS HAD SOME CONFUSION AND FORGETFULNESS. SHE HAS BEEN UNABLE TO RECOGNIZE DAUGHTER AT TIMES. PT'S TEMP DROPPED OT 94.3 AND BEAR HUGGER WAS PUT ON TO INCREASE TEMP. BODY TEMP IS WARM T/O EXCEPT FOR LEFT LOWER LEG. PT DENIES CHEST PAIN/PRESSURE OR SOB. PT REPORTS LEGS ITCHING AT TIMES. OINTMENT AND POWDER WAS APPLIED TO NEEDED SKIN AREAS. PT HAS SLEPT T/O THE NIGHT WITH MINIMAL INTERRUPTIONS. ZYPREXA ORDER WAS OBTAINED A ONE TIME DOES IF NEEDED DUE TO PREVIOUS NIGHT RESTLESSNESS AND AGITATION, TONIGHT IT WAS NOT GIVEN AND PT SLEPT WELL. PT IS ABLE TO AMBULATE WITH ONE ASSIST W/FWW. TEMP MARSH IS IN PLACE AND DRAINING TO GRAVITY. BED ALARM IS ACTIVE AND CALL LIGHT IS WITHIN REACH. DAUGHTER IS AT BEDSIDE.
--- NOTE | 2021-12-14 07:57 | NUR ---
Am note Pt alert, orineted to person and date/time, pt states she is at home and unsure of why she is at the hospital. Pt repositioned with 2 person assist. Pt denies pain, chest pain/pressure, sob, nausea, dizziness and numb/tingling at this time. Ls clear t/o, breathing even and unlabored, spo2 >90% on ra. Pt tele sinus with fist degree block and bbb, bp soft, will continue to monitor. Pt abd soft nontender, hypoactive bt x4 quad. Ble red, edema noted up to thigh, open wound noted, weeping. pulses faint to ble. Temp 97.0 per temp escobedo. Other vss. No s/sx of distress noted. Will continue to monitor.
--- NOTE | 2021-12-14 16:39 | NUR ---
Shift Summary Pt temp 96.3 - 97.1, headting pad used this afternoon. No acute changes noted. [facility] Escobedo patent and draining, plans to remove escobedo once patient back to bed after dinner. Other vss. No other acute changes noted. Will continue to monitor.
--- NOTE | 2021-12-15 05:01 | NUR ---
SHIFT SUMMARY NO ACUTE CHANGES THIS SHIFT. PT ALERT, FOLLOWS COMMANDS, PLEASANT. SP02>92% ON RA. NO TELEMETRY, VSS. TEMP >96 DEGREES. WARM BLANKETS APPLIED T/O NIGHT, ROOM TEMPERATURE TURNED UP, HEATING PAD ON PT. PT UP TO BSC TO VOID. C/D ATTENDS IN PLACE. PT DENIES PAIN. C/O ITCHING IN LEGS, CREAM APPLIED PER EMAR AT START OF SHIFT W/ RELIEF. PT REPOSITIONED SELF IN BED. UP A FEW TIMES IMPULSIVELY, BED ALARM SOUNDED AND EASY TO REDIRECTED BACK TO BED. SLEPT MOST OF NIGHT. CALL LIGHT IN REACH. BED ALARM ON.
--- NOTE | 2021-12-15 19:19 | NUR ---
Shift Summary Pt alert, oriented x2, confused and hallucinating at times. Pt up in chair with one person assist with walker. Pt denies pain, chest pain, sob, nausea, dizziness/lightheadedness and numb/tingling. Vss, temp >96.9. Pt on fluid restriction 1800. Pt had fall this afternoon, standing next to recliner, multiple effect evaporator operator at bedside, pt slide down foot stool. no injuries noted, pt denies pain or injury; notified Dr Garcia, son Mikhail and charge/nursing automation and controls supervisor. No other acute changes noted. Report given to oncoming rn.
--- NOTE | 2021-12-15 21:55 | NUR ---
NO IV ACCESS LOST IV ACCESS AROUND 2144 AFTER NIGHT MEDICATIONS GIVEN. CALL PLACED TO HOSPIALIST, ORDER FOR NO IV ACCESS RECIEVED. DAY SHIFT TO REEVALUATE IF IV IS NEEDED. NO CHANGES TO EMAR AT THIS TIME.
--- NOTE | 2021-12-16 05:53 | NUR ---
SHIFT SUMMARY PATIENT ALERT, ORIENTED x2, MILD HALLUCINATIONS OVERNIGHT, MAINLY ABOUT FAMILY MEMBERS AND PATIENT STATES "I NEED TO GET MY CLOTHES THAT ARE IN DR. CORTES'S CLOSET". VSS, PATIENT REMAINS ON RA WITH O2 SAT >90%. PATIENT ALTERNATING BETWEEN BED AND CHAIR FOR COMFORT. BED ALARM/CHAIR ALARM IN PLACE FOR SAFETY. DENIES CHEST PAIN OR SHORTNESS OF BREATH THROUGH THE NIGHT. USING BSC WITH ADEQUATE URINE OUTPUT. NO IV ACCESS, SEE PREVIOUS NOTE. NO OTHER SIGNIFICANT CHANGES THIS SHIFT, WILL REPORT TO DAY SHIFT RN.
--- NOTE | 2021-12-16 07:55 | NUR ---
Am note Pt alert, oriented to person and date/time. Up in chair, 1 person assist with walker in room. Pt denies pain, chest pain/pressure, sob, nausea, dizziness, and numbness/tingling. Bp and hr stable. Other vss. Spo2 >90% on ra, ls clear, dim in bases. Abd soft, nontender. Pt up in chair, chair alarm in place. Pt states she can walk to the bathroom now, pt educated to use call light before getting up. No iv noted. No s/sx of distress noted. Will continue to monitor.
[2021-12-16] MEDS ORDERED: AMOCLA875 PO (12:30)
--- NOTE | 2021-12-16 12:55 | NUR ---
Discharge summary No acute changes t/o shift. No iv this am, notified Dr Garcia, new orders for po medications. Vss. Pt and son educated on discharge instructions, follow up appointment and prescriptions. Prescriptions faxed to facility. Pt finishing lunch and then plan to leave with son to transport to [facility].
== END 2021-12-16 13:58 | disposition home or self-care (01) | DRG 291 ==
LOC: MEDS 13:40 → PCU 12-11 18:30
PROVIDERS: Internal Medicine; ADMIT Family Medicine
DX: I13.0 Hypertensive heart and chronic kidney disease with heart failure and stage 1 through stage 4 chronic kidney disease, or unspecified chronic kidney disease (principal); I50.21 Acute systolic (congestive) heart failure; N17.9 Acute kidney failure, unspecified; L97.919 Non-pressure chronic ulcer of unspecified part of right lower leg with unspecified severity; L97.929 Non-pressure chronic ulcer of unspecified part of left lower leg with unspecified severity; L03.115 Cellulitis of right lower limb; L03.116 Cellulitis of left lower limb; E11.22 Type 2 diabetes mellitus with diabetic chronic kidney disease; I87.8 Other specified disorders of veins; I08.1 Rheumatic disorders of both mitral and tricuspid valves; N18.32 Chronic kidney disease, stage 3b; E78.5 Hyperlipidemia, unspecified; I27.20 Pulmonary hypertension, unspecified; D63.1 Anemia in chronic kidney disease; E55.9 Vitamin D deficiency, unspecified; F03.90 Unspecified dementia, unspecified severity, without behavioral disturbance, psychotic disturbance, mood disturbance, and anxiety; H91.90 Unspecified hearing loss, unspecified ear; Z79.84 Long term (current) use of oral hypoglycemic drugs; Z79.899 Other long term (current) drug therapy; Z88.8 Allergy status to other drugs, medicaments and biological substances
CPT/HCPCS: 36415; 71045; 80053; 81003; 82947; 85025; 87040; 93308; 93321; 94760; 96372; 96374; 96375; 96376; 97110; 97116; 97162; 97166; 97530; 97535; A9270; G0378; J1644; J1940

== ENCOUNTER → 2021-12-10 | Outpatient (CLI) | payer MEDICARE, OTHER ==
[~2021-12-10] MED LIST changes: +Benadryl Itch28.3 G1 TOP; +CEPH500; +DOXY100 PO; +ERGO50000 PO
[2021-12-10 11:13] LABS: BASOPHILS ABSOLUTE AUTO 0.06 K/mm3 (0.00-0.23); BASOPHILS PERCENT AUTO 1 % (0-2); EOSINOPHILS ABSOLUTE AUTO 0.28 K/mm3 (0.00-0.68); EOSINOPHILS PERCENT AUTO 6 % (0-6); Hematocrit 36.6 % (33.0-51.0); Hemoglobin 11.5 g/dL (11.5-16.0); IMMATURE GRAN ABSOLUTE AUTO 0.01 K/mm3 (0.00-0.10); IMMATURE GRAN PERCENT AUTO 0 % (0-1); LYMPHOCYTES ABSOLUTE AUTO 0.64 K/mm3 (0.84-5.20); LYMPHOCYTES PERCENT AUTO 13 % (21-46); MONOCYTES ABSOLUTE AUTO 0.41 K/mm3 (0.16-1.47); MONOCYTES PERCENT AUTO 8 % (4-13); Mean Corpuscular HGB 27.4 pg (26.0-34.0); Mean Corpuscular HGB Conc 31.4 g/dL (31.5-36.5); Mean Corpuscular Volume 87 fL (80-100); Mean Platelet Volume 11.8 fL (9.1-12.4); NEUTROPHILS ABSOLUTE AUTO 3.49 K/mm3 (1.96-9.15); NEUTROPHILS PERCENT AUTO 71 % (41-73); Platelet Count 116 K/mm3 (150-400); RDW Coefficient Variation 21.2 % (11.7-14.2); RDW Standard Deviation 65.9 fL (35.1-46.3); White Blood Cell Count 4.89 K/mm3 (4.00-11.30)
[2021-12-10 11:33] LABS: Anion Gap 6 mmol/L (6-16); Blood Urea Nitrogen 27 mg/dL (8-24); Bun/Creatinine Ratio 20.5 (12.0-20.0); CO2, Blood 30 mmol/L (21-32); Calcium, Blood 8.8 mg/dL (8.5-10.1); Chloride, Blood 109 mmol/L (98-108); Creatinine, Blood 1.32 mg/dL (0.40-1.00); Glomerular Filtration Rate 40 (60-); Glucose, Blood 106 mg/dL (70-99); Phosphorus, Blood 3.8 mg/dL (2.5-4.9); Potassium, Blood 4.3 mmol/L (3.5-5.5); Sodium, Blood 145 mmol/L (136-145)
== END | disposition home or self-care (01) ==
LOC: LAB 11:01 → LAB SHORT 11:01
PROVIDERS: Chiropractor
DX: N18.30 Chronic kidney disease, stage 3 unspecified (principal); R60.0 Localized edema
CPT/HCPCS: 80069; 83735; 83880; 85025

== ENCOUNTER 2021-12-29 15:39 | Emergency (ER) | payer MEDICARE, OTHER ==
[~2021-12-29] VITALS: Ht 152.4 cm; Wt 96.2 kg
[~2021-12-29 15:39] MED LIST changes: +AMOCLA875 PO; +CEPH500; +ERGO50000 PO
[2021-12-29 17:08] LABS: Source, Urine Foley catheter
[2021-12-29 17:26] LABS: BASOPHILS ABSOLUTE AUTO 0.06 K/mm3 (0.00-0.23); BASOPHILS PERCENT AUTO 1 % (0-2); EOSINOPHILS ABSOLUTE AUTO 0.18 K/mm3 (0.00-0.68); EOSINOPHILS PERCENT AUTO 3 % (0-6); Hematocrit 33.6 % (33.0-51.0); Hemoglobin 10.7 g/dL (11.5-16.0); IMMATURE GRAN ABSOLUTE AUTO 0.04 K/mm3 (0.00-0.10); IMMATURE GRAN PERCENT AUTO 1 % (0-1); LYMPHOCYTES ABSOLUTE AUTO 0.86 K/mm3 (0.84-5.20); LYMPHOCYTES PERCENT AUTO 15 % (21-46); MONOCYTES ABSOLUTE AUTO 0.49 K/mm3 (0.16-1.47); MONOCYTES PERCENT AUTO 8 % (4-13); Mean Corpuscular HGB 27.5 pg (26.0-34.0); Mean Corpuscular HGB Conc 31.8 g/dL (31.5-36.5); Mean Corpuscular Volume 86 fL (80-100); Mean Platelet Volume 11.2 fL (9.1-12.4); NEUTROPHILS ABSOLUTE AUTO 4.25 K/mm3 (1.96-9.15); NEUTROPHILS PERCENT AUTO 72 % (41-73); Platelet Count 188 K/mm3 (150-400); RDW Coefficient Variation 19.2 % (11.7-14.2); RDW Standard Deviation 60.2 fL (35.1-46.3); Red Blood Cell Count 3.89 M/mm3 (3.80-5.20); White Blood Cell Count 5.88 K/mm3 (4.00-11.30)
[2021-12-29 17:43] LABS: Albumin, Blood 2.7 g/dL (3.4-5.0); Albumin/Globulin Ratio 0.6 (0.8-1.8); Bilirubin, Total 1.2 mg/dL (0.1-1.0); Bun/Creatinine Ratio 31.1 (12.0-20.0); Calcium, Blood 8.8 mg/dL (8.5-10.1); Creatinine, Blood 1.03 mg/dL (0.40-1.00); Globulin, Blood 4.6 g/dL (2.2-4.0); Potassium, Blood 3.2 mmol/L (3.5-5.5); Total Protein, Blood 7.3 g/dL (6.4-8.2)
[2021-12-29 18:00] LABS: Bilirubin, Urine Neg (Neg); Blood, Urine 1+ (Neg); Glucose Qualitative, Urine Neg (Neg); Ketones, Urine Neg (Neg); Leukocyte Esterase, Urine Neg (Neg); Nitrite, Urine Pos (Neg); Protein, Urine Neg (Neg); Specific Gravity, Urine 1.015 (1.003-1.022); Urobilinogen, Urine NORM (Normal)
[2021-12-29] MEDS ORDERED: QUET25 PO (18:26)
[2021-12-29] MEDS ORDERED: CEFD300 PO (18:26)
[2021-12-29 18:31] LABS: Appearance, Urine Hazy (Clear); Color, Urine Pale Yellow (P-Yellow)
[2021-12-29 18:32] LABS: Bacteria Many /hpf; Hyaline Casts 0-2 /lpf (0-2); Squamous Epithelial Cells Rare /hpf (Few)
== END 2021-12-29 18:57 | disposition home or self-care (01) ==
LOC: ER 15:39
PROVIDERS: Emergency Medicine
DX: L03.116 Cellulitis of left lower limb (principal); L03.115 Cellulitis of right lower limb; E11.22 Type 2 diabetes mellitus with diabetic chronic kidney disease; I13.0 Hypertensive heart and chronic kidney disease with heart failure and stage 1 through stage 4 chronic kidney disease, or unspecified chronic kidney disease; N18.30 Chronic kidney disease, stage 3 unspecified; I50.9 Heart failure, unspecified; Z88.8 Allergy status to other drugs, medicaments and biological substances; Z79.899 Other long term (current) drug therapy
CPT/HCPCS: 36415; 51702; 51798; 80053; 81001; 85025; A9270

== ENCOUNTER 2022-02-03 04:15 | Emergency (ER) | payer MEDICARE, OTHER ==
[~2022-02-03] VITALS: Ht 154.9 cm; Wt 95.2 kg
[~2022-02-03 04:15] MED LIST changes: +CEFD300 PO; +QUET25 PO; +TAMSULOSIN HCL0.4 M1 PO; +TORSE20 PO
== END 2022-02-03 05:14 | disposition home or self-care (01) ==
LOC: ER 04:15
DX: T83.021A Displacement of indwelling urethral catheter, initial encounter (principal); Y82.8 Other medical devices associated with adverse incidents
CPT/HCPCS: 51702

== ENCOUNTER 2022-02-10 23:56 | Inpatient (IN) | payer MEDICARE, OTHER ==
[~2022-02-10] VITALS: Ht 162.6 cm; Wt 93.3 kg
[2022-02-11] MEDS ORDERED: ONGLYZA5 MG PO (00:24)
[2022-02-11 00:40] LABS: BASOPHILS ABSOLUTE AUTO 0.02 K/mm3 (0.00-0.23); BASOPHILS PERCENT AUTO 0 % (0-2); EOSINOPHILS ABSOLUTE AUTO 0.03 K/mm3 (0.00-0.68); EOSINOPHILS PERCENT AUTO 1 % (0-6); Hematocrit 34.1 % (33.0-51.0); Hemoglobin 10.8 g/dL (11.5-16.0); IMMATURE GRAN ABSOLUTE AUTO 0.03 K/mm3 (0.00-0.10); IMMATURE GRAN PERCENT AUTO 1 % (0-1); LYMPHOCYTES ABSOLUTE AUTO 0.96 K/mm3 (0.84-5.20); LYMPHOCYTES PERCENT AUTO 21 % (21-46); MONOCYTES PERCENT AUTO 4 % (4-13); Mean Corpuscular HGB 28.1 pg (26.0-34.0); Mean Corpuscular HGB Conc 31.7 g/dL (31.5-36.5); Mean Corpuscular Volume 89 fL (80-100); NEUTROPHILS ABSOLUTE AUTO 3.34 K/mm3 (1.96-9.15); NEUTROPHILS PERCENT AUTO 73 % (41-73); NRBC ABSOLUTE 0.02 K/mm3 (0.00-0.02); NRBC Auto 0.4 /100 WBC (0.0-0.2); Platelet Count 100 K/mm3 (150-400); RDW Coefficient Variation 18.3 % (11.7-14.2); RDW Standard Deviation 57.8 fL (35.1-46.3); Red Blood Cell Count 3.84 M/mm3 (3.80-5.20); White Blood Cell Count 4.58 K/mm3 (4.00-11.30)
[2022-02-11 00:58] LABS: Albumin, Blood 2.5 g/dL (3.4-5.0); Albumin/Globulin Ratio 0.6 (0.8-1.8); Bilirubin, Total 1.1 mg/dL (0.1-1.0); Calcium, Blood 8.7 mg/dL (8.5-10.1); Creatinine, Blood 1.6 mg/dL (0.40-1.00); Globulin, Blood 4.1 g/dL (2.2-4.0); Total Protein, Blood 6.6 g/dL (6.4-8.2)
[2022-02-11 02:14] LABS: Source, Urine Foley catheter
[2022-02-11 02:21] LABS: Appearance, Urine Cloudy (Clear); Bilirubin, Urine Neg (Neg); Blood, Urine 4+ (Neg); Glucose Qualitative, Urine Neg (Neg); Ketones, Urine Neg (Neg); Leukocyte Esterase, Urine 2+ (Neg); Nitrite, Urine Neg (Neg); Protein, Urine 3+ (Neg); Specific Gravity, Urine 1.015 (1.003-1.022); Urobilinogen, Urine NORM (Normal)
[2022-02-11 02:37] LABS: Color, Urine Pale Yellow (P-Yellow)
[2022-02-11 02:48] LABS: Amorphous Light (0-Heavy); Bacteria Many /hpf; Squamous Epithelial Cells Many /hpf (Few)
[2022-02-11 02:49] LABS: Transitional Epithelial Cells Rare /hpf (0-Rare)
[2022-02-11 06:27] LABS: BASOPHILS ABSOLUTE AUTO 0.02 K/mm3 (0.00-0.23); BASOPHILS PERCENT AUTO 1 % (0-2); EOSINOPHILS ABSOLUTE AUTO 0.06 K/mm3 (0.00-0.68); EOSINOPHILS PERCENT AUTO 2 % (0-6); Hematocrit 33.7 % (33.0-51.0); Hemoglobin 10.8 g/dL (11.5-16.0); IMMATURE GRAN ABSOLUTE AUTO 0.02 K/mm3 (0.00-0.10); IMMATURE GRAN PERCENT AUTO 1 % (0-1); LYMPHOCYTES ABSOLUTE AUTO 0.88 K/mm3 (0.84-5.20); LYMPHOCYTES PERCENT AUTO 22 % (21-46); MONOCYTES ABSOLUTE AUTO 0.18 K/mm3 (0.16-1.47); MONOCYTES PERCENT AUTO 5 % (4-13); Mean Corpuscular HGB 28.4 pg (26.0-34.0); Mean Corpuscular Volume 89 fL (80-100); NEUTROPHILS ABSOLUTE AUTO 2.81 K/mm3 (1.96-9.15); NEUTROPHILS PERCENT AUTO 71 % (41-73); NRBC ABSOLUTE 0.02 K/mm3 (0.00-0.02); NRBC Auto 0.5 /100 WBC (0.0-0.2); Platelet Count 96 K/mm3 (150-400); RDW Coefficient Variation 18.5 % (11.7-14.2); RDW Standard Deviation 59.4 fL (35.1-46.3); White Blood Cell Count 3.97 K/mm3 (4.00-11.30)
[2022-02-11 06:29] LABS: Mean Platelet Volume 12.4 fL (9.1-12.4)
[2022-02-11 06:45] LABS: Albumin, Blood 2.4 g/dL (3.4-5.0); Albumin/Globulin Ratio 0.6 (0.8-1.8); Bilirubin, Total 1.3 mg/dL (0.1-1.0); Bun/Creatinine Ratio 34.4 (12.0-20.0); Calcium, Blood 8.6 mg/dL (8.5-10.1); Creatinine, Blood 1.57 mg/dL (0.40-1.00); Globulin, Blood 4.2 g/dL (2.2-4.0); Potassium, Blood 4.9 mmol/L (3.5-5.5); Total Protein, Blood 6.6 g/dL (6.4-8.2)
[2022-02-11 10:34] LABS: Hematocrit 32.7 % (33.0-51.0); Hemoglobin 10.5 g/dL (11.5-16.0)
--- NOTE | 2022-02-11 12:30 | NUR ---
PT ARRIVES FROM ER VERY DROWSY, PT AWAKES TO VERBAL STIMULI AND TOUCH. PT ORIENTED TO PLACE AND SELF, BUT IS VERY SLOW TO ANSWER ANY QUESTIONS. THERE WAS NO FAMILY PRESENT UPON ADMISSION TO PCU. PT WITH STEADY PRODUCTION OF RUST COLORED STOOL WITH MUCUS, NO ACTIVE BLEEDING NOTED FROM RECTUM. THERE IS SOME SCANT BLEEDING NOTED FROM COCCYX WOUND. WOUND IS DRESSED WITH MEPILEX UPON ARRIVAL. TEMPERATURE LOW UPON ARRIVAL 87.7 PER RECTAL TEMP, WARMING BLANKETS APPLIED, HYPOTENSIVE AND BRADYCARDIC ALSO UPON ARRIVAL, DR CUEVA TO BE NOTIFIED OF INITIAL ASSESSMENT. WHEN REVEWING PREVIOUS ADMISSION HX, IT APPEARS THAT PT PRESENTED IN A SIMILAR FASHION EARLIER THIS YEAR. WILL ALSO CONTACT PALLIATIVE CARE TO FOLLOW UP WITH CONSULT. LINENS AND ATTENDS CHANGED UPON ARRIVING TO PCU.
--- NOTE | 2022-02-11 12:46 | NUR ---
DR CUEVA CONSULTED ABOUT PT'S STATUS UPON ARRIVAL FROM ER, PALLIATIVE CARE CONSULTED ABOUT PT AT THIS TIME.
--- NOTE | 2022-02-11 14:12 | NUR ---
Spoke with Primary RN Simran and discussed case. Pt medicaly fragile, been experiencing low body temperatures, and hypotension. Pt has been A&O to self and place only. Family may benefit from goals of care discussion. Spoke with Dr Castro and discussed case. Pt resting in bed with her eyes closed and remains closed throughout visit. Pt's granddaughter in law Francheska at bedside. Provided update and reviewed plan of care. Discussed the potential need for family to consider goals of care. Offered active listening and answered questions. Called and spoke with Pt's son Mikhail. Provided update and engaged in therapeutic discussion regarding advanced care planning and the option to consider hospice. Mikhail reports plan to be at the hospital around 1530 and is open to further discussions. Palliative Care will F/U when son is at bedside.
[2022-02-11 14:31] LABS: Hematocrit 31.6 % (33.0-51.0); Hemoglobin 10.1 g/dL (11.5-16.0)
--- NOTE | 2022-02-11 16:27 | NUR ---
Pt's son has arrived. Offered therapeutic conversation regarding goals of care. Gentle education on disease process including trajectory. Discussed comfort care and hospice as an option. Educated on hospice and comfort care philosophy. Offered active listening and answered questions. Listened as son Mikhail reports [facility] has told family that they no longer can provide adequate care for Pt and Pt will need higher level of group home care. Son reports family is wanting to continue current plan of care for a couple days to see if there is any improvement. Son report's family is wanting to speak with Pt regarding goals of care if her mentation improves but are prepared to make decisions if no improvement. Continued therapeutic visit. Son expresses appreciation and reports no other concerns at this time. Spoke with Primary RN Simran and discussed case.
--- NOTE | 2022-02-11 17:01 | NUR ---
PT ARRIVED FROM ER THIS AFTERNOON, VERY DROWSY, SHE DOES WAKE TO VERBAL STIMULI BUT QUICKLY RETURNS TO SLEEP. PT IS ABLE TO WAKE UP AND STATE HER ALLERGIES, SHE IS AWARE SHE IS IN [place], AND ORIENTED TO HERSELF. SHE DOES ANSWER SOME QUESTIONS CORRECTLY, HOWEVER IT TAKES HER A VERY LONG TIME TO PRODUCE ANSWERS. EXCORIATION NOTED TO COCCYX, EXTENDS TO DELROY AREA. SMALL ULCERATION NOTED TO LT GLUTEAL CLEFT. WOUNDS ARE DRESSED AND COVERED IN BARRIER CREAM. PHOTOS ARE TAKEN, THEY ARE NOT IN THE CHART AT THIS TIME THE PHOTOS ARE NOT AVAILABLE TO BE PRINTED AT THIS TIME. THERE IS A UNIBOOT AND DRESSING APPLIED TO RT LEG THAT APEPARS TO BE DRESSED BY WOUND CENTER, WOUND CONSULT WILL BE PLACED TO TEND TO LEG. FAMILY SPOKE WITH PALLIATIVE CARE, FAMILY REQUESTS THAT FULL CARE BE PROVIDED PT WITH MARKED HX OF SIMILAR PRESENTATION WITH UTIs IN THE PAST. URINE CULTURE PENDING, PT WITH CHRONIC MARSH, MARSH WAS CHANGED UPON ARRIVAL TO ER THIS VISIT. UPON ARRIVAL TO UNIT PT WITH MARKED BRADYCARDIA AND HYPOTHERMIA, SOFT PRESSURES. HEATING PADS APPLIED TO PT'S CHEST AND SEVERAL BLANKETS SCOTT HUGGER WAS NOT AVAILBABLE. HYPOTHERMIA IS RESOLVING AT THIS TIME.
--- NOTE | 2022-02-11 17:20 | NUR ---
Spiritual Care Visit. Pt. is resting, but responded when I spoke to her. Pt. diplayed evidence of "groggy confusion" so I kept the the visit short. Prayed with Pt. Pt. did acknowlege with a nod. Pts. son arrived at the conclusion of the visit. Re-established rapport as Pt. had been a former Pt. of this circuit walker. Son verblaized gratitude for the spiritual care visit. Will visit with family tomorrow.
[2022-02-11 18:20] LABS: Hematocrit 31.4 % (33.0-51.0)
--- NOTE | 2022-02-11 18:39 | NUR ---
PT ALERT, LOOKING AROUND, SHE IS MORE CONVERSIVE AT THIS TIME. SLOW TO ANSWER, ORIENTED X3. HYPOTHERMIA APPEARS TO BE CONTINUOUSLY IMPROVING, HEATING PAD REMAINS IN PLACE
[2022-02-11 21:36] LABS: Stool Occult Blood Guaiac 1 Pos (Neg)
[2022-02-12 03:08] LABS: Adenovirus F 40/41 Not Detected (NOT DETECT); Astrovirus Not Detected (NOT DETECT); Campylobacter Sp Not Detected (NOT DETECT); Cryptosporidium Not Detected (NOT DETECT); Cyclospora Cayetanensis Not Detected (NOT DETECT); E. Coli O157 Not Detected (NOT DETECT); Entamoeba Histolytica Not Detected (NOT DETECT); Enteroaggregative E. coli-EAEC Not Detected (NOT DETECT); Enteropathogenic E. coli-EPEC Not Detected (NOT DETECT); Enterotoxigenic E. coli-ETEC Not Detected (NOT DETECT); Giardia Lamblia Not Detected (NOT DETECT); Norovirus GI/GII Not Detected (NOT DETECT); Plesiomonas Shigelloides Not Detected (NOT DETECT); Rotavirus A Not Detected (NOT DETECT); Salmonella Sp Not Detected (NOT DETECT); Sapovirus Not Detected (NOT DETECT); Shiga Toxin-prod E. coli-STEC Not Detected (NOT DETECT); Shigella/Enteroin E. coli-EIEC Not Detected (NOT DETECT); Vibrio Cholerae Not Detected (NOT DETECT); Vibrio Sp Not Detected (NOT DETECT); Yersinia Enterocolitica Not Detected (NOT DETECT)
--- NOTE | 2022-02-12 03:15 | NUR ---
TRANSFER ASSUMED CARE OF PT AT 1900. PT IS ALERT BUT NOT ORIENTED, ONLY SPEAKING ONE WORD SENTENCES. PT BLOOD PRESSURES ARE SOFT. BLOOD SUGAR WAS IN THE 80S AND RECTAL TEMP WAS 97'S. AT AROUND 0000 AT ROUNDS. PT BP DROPPED TO THE MAP OF 50S AND HER BLOOD SUGAR WAS 64. HOSPITALIST NOTIFIED AND ORDERED D5 INFUSION AND SMALL 250 BOLUS. AFTER 1 HOUR, ANOTHER CHECK SHOWED GLUCOSE OF 54. D50 GIVEN. PT RESPONDED WELL TO D50 BUT THE BOLUS DID NOT HELP PT BP. HOSPITALIST ASKED THIS NURSE TO CALL THE SON AND UPDATE ON PT CONDITION. SON FILOMENA SAID THAT HE WANTED PT TO BE TRANSFERED TO HIGHER CARE FOR MEDICATION BUT NO LIFE SAVING MEASURES SUCH CPR OR INTUBATION. RESIDENT NOTIFIED AND ORDERED TX. REPORT GIVEN TO DAI IN ICU. PT TRANSFERED AT AROUND 0320. PT TOLERATED TX.
[2022-02-12 03:53] LABS: BASOPHILS ABSOLUTE AUTO 0.02 K/mm3 (0.00-0.23); BASOPHILS PERCENT AUTO 0 % (0-2); EOSINOPHILS ABSOLUTE AUTO 0.04 K/mm3 (0.00-0.68); EOSINOPHILS PERCENT AUTO 1 % (0-6); Hematocrit 30.2 % (33.0-51.0); Hemoglobin 9.8 g/dL (11.5-16.0); IMMATURE GRAN ABSOLUTE AUTO 0.03 K/mm3 (0.00-0.10); IMMATURE GRAN PERCENT AUTO 1 % (0-1); LYMPHOCYTES ABSOLUTE AUTO 0.65 K/mm3 (0.84-5.20); LYMPHOCYTES PERCENT AUTO 11 % (21-46); MONOCYTES ABSOLUTE AUTO 0.19 K/mm3 (0.16-1.47); MONOCYTES PERCENT AUTO 3 % (4-13); Mean Corpuscular HGB 28.8 pg (26.0-34.0); Mean Corpuscular HGB Conc 32.5 g/dL (31.5-36.5); Mean Corpuscular Volume 89 fL (80-100); NEUTROPHILS ABSOLUTE AUTO 4.81 K/mm3 (1.96-9.15); NEUTROPHILS PERCENT AUTO 84 % (41-73); NRBC ABSOLUTE 0.02 K/mm3 (0.00-0.02); NRBC Auto 0.3 /100 WBC (0.0-0.2); Platelet Count 90 K/mm3 (150-400); RDW Coefficient Variation 18.9 % (11.7-14.2); RDW Standard Deviation 59.4 fL (35.1-46.3); White Blood Cell Count 5.74 K/mm3 (4.00-11.30)
[2022-02-12 04:12] LABS: Bun/Creatinine Ratio 32.7 (12.0-20.0); Calcium, Blood 7.9 mg/dL (8.5-10.1); Creatinine, Blood 1.56 mg/dL (0.40-1.00); Potassium, Blood 4.8 mmol/L (3.5-5.5)
--- NOTE | 2022-02-12 05:08 | NUR ---
Summary. Report received from COOLER CONVEYOR LOADER. Pt arrived to ICU very somnolent, arousable to verbal stimuli. PG in EFRAIN, IV in R/ac, L/wrist. D5 at 50 ml/hr. Levophed started at 4 mcg/min for MAP below 65, titrated down to 3 mcg/min. Pt temp 96.1, warming pad in place from PCU. Escobedo catheter in place, draining to gravity. Neuro - pt following some directions, does not answer most questions, answered no when asked about pain. CV - AFIB, rate 60-80s. Resp- JESSICA. GI soft, nontender. - escobedo. Skin- multiple areas of reddened areas/skin tears/excoriations on BLE/buttock, meplex on coccyx, photos in chart. Skin tears on both arms, hands/arms have extensive bruising/reddened areas, bandage in place on L/forearm, photo in chart. See assessment for further details. Will continue to monitor and report off to dayshift RN.
--- NOTE | 2022-02-12 10:35 | NUR ---
Spiritual Care Visit. Pt. is resting but occassionally responds to discussion in the room. Family members are present (son, daughter, and granddaughter). Re-establish rapport with family. Pt. can only minimally respond. Will allow family to be together, Family members verbalize gratitude for the spiritual care visit. Will monitor throughout the shift.
--- NOTE | 2022-02-12 17:53 | NUR ---
PT ARRIVED TO FLOOR 1245 TODAY. NEWLY SET ON COMFORT CARE. BARELY ANSWERS WITH 1 WORD REPLY. DENIES PAIN. FAMILY AT BEDSIDE. 2 BM TODAY ON THIS FLOOR. NO BRITE RED BLOOD NOTED. IS LOOSE STOOL. BROWN. TURNING Q2 AND CHANGING. AMRSH IN PLACE. BED IN LOW POSITION,C ALL LITE IN REACH, BED ALARM ON FOR SAFETY
--- NOTE | 2022-02-13 | NUR ---
NURSE NOTE: FAMILY AT BEDSIDE INFORMS THIS RN THAT FAMILY IS CURRENTLY HAVING SECOND THOUGHTS WITH PATIENT REMAINING ON COMFORT CARE. BASED ON PERCEIVED PROGRESSION OF PATIENTS CURRENT HEALTH STATUS DURING THE DAY- FAMILY EXPLAINED THAT SHE WAS ABLE TO EAT AND DRINK AND HAVE INCREASED CONVERSATION. AT ONE POINT PATIENT ASKED FAMILY "AM I DYING? I'M NOT READY TO GO, I STILL HAVE THINGS I NEED TO DO HERE". PER DAUGHTER VICENTE, FAMILY WANTS TO DO WHATEVER THE PATIENT DESIRES; LEADING FAMILY WANTING TO RE-EVALUATE CURRENT PLAN OF PATIENT'S CARE. VICENTE REPORTS THAT FILOMENA (PATIENT'S SON) WILL COME TO VISIT PT TOMORROW, AT THAT TIME THEY WANT TO DISCUSS POSSIBLE ALTERNATIVE PLAN OF CARE WITH POSSIBLY ENDING COMFORT CARE STATUS. FAMILY IS REQUESTING TO HAVE ADDITIONAL CONVERSATION WITH MD TOMORROW TO ASSIST WITH THIS DECISION. DISCUSSED WITH VICENTE (PT'S DAUGHTER) THE PLAN OF CARE TONIGHT WITH PATIENT REMAINING ON CURRENT COMFORT CARE STATUS. VICENTE CONTACTED FILOMENA AND BOTH AGREED TO CONTINUE WITH COMFORT CARE MEASURES FOR TONIGHT AND WILL CONTINUE WITH THE PLAN TO RE-EVALUATE IN THE MORNING. SURVEYING OR SPATIAL SCIENCE TECHNICIAN INFORMED OF CURRENT SITUATION.
--- NOTE | 2022-02-13 07:27 | NUR ---
SHIFT SUMMARY: A/O-SELF, 2 PERSON ASSIST TURNING/REPOSITIONING. PRN PAIN MEDICATION ADMINISTERED ONCE TONIGHT WITH ADEQUATE RELIEF. THROUGHOUT THE REST OF THE NIGHT PT REPORTED COMFORT POST TURNING AND REPOSITIONING. PT HAD 2 JELLY LIKE SUBSTANCE BOWEL MOVEMENTS TONIGHT. MEPILEX DRESSINGS APPLIED TO L.LEG DUE TO INCREASED DRAINAGE. MEPILEX APPLIED TO COCCYX AREA DUE TO EXCORIATION AND SKIN BREAKDOWN. PT APPEARS TO BE MORE ALERT AND HAVING INCREASED COMMUNICATION THIS MORNING. FAMILY REMAINS AT BEDSIDE THROUGHOUT THE NIGHT. FAMILY REQUEST TO SPEAK TO MD AND PALLIATIVE TODAY DUE TO CONTEMPLATION OF CHANGING COMFORT CARE STATUS- PLEASE READ PRIOR NURSE NOTE FOR ADDITIONAL INFORMATION. - BED ALARM REMAINS ACTIVATED, BED IN LOW POSITION, CALL LOERA AND BELONGINGS IN REACH.
--- NOTE | 2022-02-13 08:00 | NUR ---
PT AWAKENS TO TALKING. SHORT 1-2 WORD RESPONSES. DENIES PAIN. DAUGHTER IN ROOM AT BEDSIDE. DAUGHTER HAS SOME ANXIETY, DR WAS IN TO SEE, THIS APPEARED TO HELP. CALLED PASTORAL CARE FOR ADDITIONAL COMFORT. PT CDI AT THIS TIME. RESTING COMFORTABLY. NO GRIMMACES, NO CRYING, NO EXTREMETY MOVEMENTS NOTED. WILL CONTINUE TO MONITOR. BED IN LOW POSITION, CALL LITE IN REACH, BED ALARM ON FOR SAFETY
--- NOTE | 2022-02-13 12:08 | NUR ---
Comfort Care Visit Brief supportive visit. Etymology Professor Matti and family at bedside. Offered supportive listening with family reporting no concerns at this time. Spoke with Primary RN Slava and discussed case. Palliative Care will remain available.
--- NOTE | 2022-02-13 12:15 | NUR ---
Spiritual Care Nurse Request. Pt. is resting and mostly non-reponsive. Pts. daughter is at bedside and welcomed me while she finished a phone call witha family member. Pts. daughter is unsettled by the families comfort care decision because of unrealistic expectations of family who are not present. Through theraputic listening, rapport is established. Pts. daughter and grandson (who arrived later) are both at peace and comforted. Joey from Palliative Care made a visit. Prayed with family and Pt. Family verbalized gratitude for the spiritual care visit.
--- NOTE | 2022-02-13 16:37 | NUR ---
PT PLEASANT TODAY. FAMILY AT BEDSIDE T/O DAY. PT STILL RESPONDS WITH 1-2 WORDS. DENIES PAIN. TURNING AND CHANGING REGULARLY. PT CONTINUES TO BE COMFORTABLE. NO CALLING OUT, NO SQUIRMING, OR GRIMMACING. FAMILY CALLS WHENEVER THEY HAVE NEEDS. NO NEW CONCERNS NOTED. BED IN LOW POSITION, CALL LITE IN REACH, BED ALARM FOR SAFETY
--- NOTE | 2022-02-14 04:40 | NUR ---
SHIFT SUMMARY: PT A/O X1-2- FORGETFUL, TYPICALLY WITH DECREASED COMMUNICATION. HOWEVER TONIGHT PATIENT HAS HAD INCREASED VERBAL COMMUNICATION- ANSWERING QUESTIONS AND OCCASIONALLY USING FULL SENTENCE RESPONSES. FAMILY REMAINS AT BEDSIDE WITH PATIENT. CONTINUED REPOSITIONING, MARSH CATHETER REMAINS IN PLACE AND CONTINUES TO DRAIN WELL. PT HAS REPORTED NO PAIN THROUGHOUT THE NIGHT. BED ALARM REMAINS ACTIVATED, BED IN LOW POSITION, CALL LOERA AND BELONGINGS IN REACH.
--- NOTE | 2022-02-15 05:31 | NUR ---
SHIFT SUMMARY: COMFORT CARE MEASURES CONTINUED- WHEN AWAKE PT IS ALERT, RESPONSIVE AND COMMUNICATING IN FULL SENTENCES. WHEN SLEEPING ALERTING TO VOICE AND ANSWERS QUESTIONS APPROPRIATELY. NO ACUTE CHANGES THROUGHOUT THE NIGHT. NO COMPLAINTS OF PAIN OR DISCOMFORT. CONTINUED Q2 REPOSITIONING. FAMILY REMAINS AT BEDSIDE. BED IN LOW POSITION, BED ALARM ACTIVATED, CALL LOERA AND BELONGINGS IN REACH.
--- NOTE | 2022-02-15 15:47 | NUR ---
Pt is sitting up in bed working on a crossword puzzle book. She denies pain or SOB and appears relaxed and comfortable. Daughter is at bedside with other family members. They state they've been discussing comfort care, and wondered if the pt will need to move to [facility], or just stay at the hospital. They seem confused by the "Comfort Care" title, but I explained that this is just the hospital version of "Hospice", and they should continue with plans to transfer pt to [facility] if that's the place they have decided on. They state they definitely have decided on [facility] for placement. I passed this information along to the bedside RN and will pass along to Care Management in the morning.
--- NOTE | 2022-02-15 15:58 | NUR ---
SHIFT SUMMARY; PATIENT IS ON COMFORT CARE AND FAMILY MEMBER AT BEDSIDE THROUGHOUT THE DAY. FAMILY ASKED THAT THE PAITENT NOT BE TURNED WHEN SHE IS SLEEPING SO SOUNDLY SO NOT TO DISTURB HER. ZACHARY FROM PALLIATIVE CARE VISITS AND SPEAKS TO FAMILY ABOUT PLACEMENT FOR HOSPICE. PATIENT SAYS SHE DOES NOT WANT PAIN MEDICATIONS TODAY WHEN ASKED. SHE SAYS SHE IS OK AND HAS NO PAIN.
--- NOTE | 2022-02-16 04:19 | NUR ---
SHIFT SUMMARY THE PT HS SLEPT ALL NIGHT. FAMILY WAS AT BEDSIDE. SHE REPORTS PAIN WHEN ASKED, BUT WHEN OFFERED SHE DECLINES. SHE IS SLEEPING PEACEFULLY WITHOUT AGITATION, RIDGE NO PAIN MEDICATION HAS BEEN GIVEN TIS SHIFT. FAMILY IS REFUSED TURNS SO NOT TO DISTURB HER SLEEP. CALL LIGHT IN REACH AND BED IN LOWEST POSITION
--- NOTE | 2022-02-16 08:45 | NUR ---
FAMILY AT BEDSIDE. PT HAD LIQUID BM, CHANGED. PT REPOSITIONED, MARSH DRAINING TO GRAVITY. NO C/O PAIN. WILL CONTINUE TO MONITOR.
--- NOTE | 2022-02-16 10:09 | NUR ---
PT RESTING COMFORTABLY. FAMILY AT BEDSIDE. NO C/O PAIN. WILL CONTINUE TO MONITOR.
[2022-02-16 12:36] LABS: Influenza A, PCR NEGATIVE (NEGATIVE); Influenza B, PCR NEGATIVE (NEGATIVE); Resp Syncytial Virus, PCR NEGATIVE (NEGATIVE); SARS-Cov-2 (COVID-19) PCR, MMC NEGATIVE (NEGATIVE)
--- NOTE | 2022-02-16 14:32 | NUR ---
Spiritual Care Visit. Pt. is sitting up in bed and welcomes my visit. Pt. is alone amarjit I arrive and displays evidence of being responsive, engaged and aware. Establish rapport. Pt. verbalizes expectation that she will be discharged to a rehab facility. Antoine arrives. Prayed with Pt. Prayer focused on thankgiving. Pt. and family verbalized gratitude for the spiritual care visit.
--- NOTE | 2022-02-16 14:53 | NUR ---
PT RECEIVED COMPLETE BED BATH WITH LINEN CHANGE. PT REPOSITIONED. NO C/O PAIN AT THIS TIME.
--- NOTE | 2022-02-16 16:19 | NUR ---
FAMILY AT BEDSIDE. DRESSINGS TO RIGHT ARM CHANGED. PT REPOSITIONED. NO C/O PAIN AT THIS TIME. NO NEEDS VOICED. WILL CONTINUE TO MONITOR.
--- NOTE | 2022-02-16 17:45 | NUR ---
SHIFT SUMMARY NO ACCUTE CHANGES DURING SHIFT. PT ABLE TO FOLLOW SIMPLE COMMANDS. FAMILY AT BEDSIDE MAJORITY OF DAY, SUPPORTIVE. DRESSINGS CHANGED NEEDED, BATHED AND LINENS CHANGED. MARSH DRAINING TO GRAVITY. PLANS TO DC TOMORROW TO [facility]. CALL LIGHT WITHIN REACH.
--- NOTE | 2022-02-17 03:44 | NUR ---
SHIFT SUMMARY PT HAS BEEN RESTING PEACEFULLY IN HER ROOM. FAMILY WAS MOVING HER ABOUT AND GETTING HER MORE COMFORTABLE AND SHE NEEDED SOME TYLENOL. OTHERWISE SHE HAS BEEN RESTING PEACEFULLY. REWRAPPED SOME OF THE SKIN TEARS ON HER ARMS, CHECKED LEG BANDAGES, NO NEED FOR CHANGES. BED IN LOWEST POSITION AND CALL LIGHT IN REACH
[2022-02-17 09:06] LABS: Influenza A, PCR NEGATIVE (NEGATIVE); Influenza B, PCR NEGATIVE (NEGATIVE); Resp Syncytial Virus, PCR NEGATIVE (NEGATIVE); SARS-Cov-2 (COVID-19) PCR, MMC NEGATIVE (NEGATIVE)
--- NOTE | 2022-02-17 09:49 | NUR ---
Comfort Care Visit Pt resting in bed with her eyes closed. Pt appears comfortable with no S/S of distress at this time. Family at bedside. Offered active listening and answered questions. Family expresses appreciation and is in agreement with plan. Palliative Care will remain available.
[2022-02-17] MEDS ORDERED: TRANSDERM-SCOP1 EA12 TD (11:04)
[2022-02-17] MEDS ORDERED: Acetaminophen650 M1 PO (11:05)
--- NOTE | 2022-02-17 13:37 | NUR ---
PT SLEEPING AT START OF SHIFT WITH FAMILY AT . PT NOT WAKING FOR BREAKFAST, BUT LATER WOKE FOR CARE. INCONTINENT OF BOWELS. PT CLEANED AND CHANGED. DRSG'S TO BUTTOCKS CHANGED. SKIN VERY FRAGILE WITH SCATTERED SKIN TEARS. LE'S ELEVATED WITH PILLOWS. PT D/C'D ON HOSPICE TO [facility]. REPORT CALLED TO [facility] FOR HOSPICE CARE AND TO [facility] AFTER TRANSFER. FAMILY TOOK ALL BELONGINGS.
== END 2022-02-17 12:27 | DRG 871 ==
LOC: ER 23:56 → ERHOLD 23:57 → PCU 02-11 11:44 → MEDS 02-11 16:18 → ICUW 02-11 16:18 → MEDS 02-12 12:41
PROVIDERS: Emergency Medicine; Family Medicine; ADMIT Internal Medicine
PROC: 3E0 Administration, Physiological Systems and Anatomical Regions, Introduction (ICD-10-PCS; principal; 2022-02-11)
PROC: 3E033XZ Introduction of Vasopressor into Peripheral Vein, Percutaneous Approach (ICD-10-PCS; 2022-02-11)
DX: A41.9 Sepsis, unspecified organism (principal); G92.8 Other toxic encephalopathy; R65.21 Severe sepsis with septic shock; K62.5 Hemorrhage of anus and rectum; I50.1 Left ventricular failure, unspecified; N17.9 Acute kidney failure, unspecified; I13.0 Hypertensive heart and chronic kidney disease with heart failure and stage 1 through stage 4 chronic kidney disease, or unspecified chronic kidney disease; E11.22 Type 2 diabetes mellitus with diabetic chronic kidney disease; Z20.822 Contact with and (suspected) exposure to COVID-19; N18.30 Chronic kidney disease, stage 3 unspecified; E78.5 Hyperlipidemia, unspecified; F03.90 Unspecified dementia, unspecified severity, without behavioral disturbance, psychotic disturbance, mood disturbance, and anxiety; I08.1 Rheumatic disorders of both mitral and tricuspid valves; I27.20 Pulmonary hypertension, unspecified; Z51.5 Encounter for palliative care; Z88.8 Allergy status to other drugs, medicaments and biological substances; Z98.42 Cataract extraction status, left eye; Z98.41 Cataract extraction status, right eye; Z66 Do not resuscitate; Z79.899 Other long term (current) drug therapy; D63.1 Anemia in chronic kidney disease; R33.9 Retention of urine, unspecified; I87.8 Other specified disorders of veins
CPT/HCPCS: 0241U; 36415; 51702; 71045; 80048; 80053; 81001; 82272; 82947; 85014; 85018; 85025; 86850; 86900; 86901; 87086; 87324; 87507; 93005; 93010; 94762; 96361; 96374; 96375; 99285-25; A9270; C1751; C9113; G0378; J0696; J7030; J7050; J7060; J7070

== ENCOUNTER → 2022-02-25 | Outpatient (CLI) | payer MEDICARE, OTHER ==
[~2022-02-25] MED LIST changes: +Acetaminophen650 M1 PO; +ONGLYZA5 MG PO; +TRANSDERM-SCOP1 EA12 TD
[2022-02-25 19:53] LABS: Albumin, Blood 2.4 g/dL (3.4-5.0); Albumin/Globulin Ratio 0.6 (0.8-1.8); Bilirubin, Total 0.9 mg/dL (0.1-1.0); Bun/Creatinine Ratio 18.3 (12.0-20.0); Calcium, Blood 7.3 mg/dL (8.5-10.1); Creatinine, Blood 1.42 mg/dL (0.40-1.00); Globulin, Blood 4.2 g/dL (2.2-4.0); Percent Saturation 20.1 % (15.0-50.0); Phosphorus, Blood 2.5 mg/dL (2.5-4.9); Potassium, Blood 3.8 mmol/L (3.5-5.5); Total Protein, Blood 6.6 g/dL (6.4-8.2)
== END | disposition home or self-care (01) ==
LOC: LAB SHORT 11:20
PROVIDERS: Internal Medicine Hematology & Oncology
DX: E11.21 Type 2 diabetes mellitus with diabetic nephropathy (principal); E11.22 Type 2 diabetes mellitus with diabetic chronic kidney disease; N18.9 Chronic kidney disease, unspecified; D63.1 Anemia in chronic kidney disease; D50.9 Iron deficiency anemia, unspecified; E53.9 Vitamin B deficiency, unspecified
CPT/HCPCS: 80053; 82728; 83540; 83550; 84100

== ENCOUNTER 2022-04-21 02:40 | Day surgery (SDC) | payer MEDICARE, OTHER ==
--- NOTE | 2022-04-21 15:38 | NUR ---
DR CHAVEZ PT ARRIVED AT [facility], BLADDER SCANNED PRE AT 315 CC, PT URINATED 305 CC OF CLOUDY, CHUNKY LOOKING URINE. PT ALSO HAD YELLOWISH/BROWNISH BLOODING DISCHARGE IN ATTEND, IT APPEARS THIS IS COMING FROM THE [place]. PT STATES THAT SHE HAS THAT AT TIMES. ALERTED SON OF CONCERN OF DISCHARGE THATA APPEARS TO BE MIXED BLOOD WITH POSSIBLE PUS.
== END 2022-04-21 15:36 | disposition home or self-care (01) ==
LOC: ATC 02:40
DX: R33.9 Retention of urine, unspecified (principal); N18.31 Chronic kidney disease, stage 3a; I12.9 Hypertensive chronic kidney disease with stage 1 through stage 4 chronic kidney disease, or unspecified chronic kidney disease; D50.9 Iron deficiency anemia, unspecified; N25.81 Secondary hyperparathyroidism of renal origin; E87.70 Fluid overload, unspecified; D63.1 Anemia in chronic kidney disease
CPT/HCPCS: 51798

== ENCOUNTER → 2022-04-21 | Outpatient (CLI) | payer MEDICARE, OTHER ==
[2022-04-21 18:24] LABS: Albumin, Blood 2.7 g/dL (3.4-5.0); Anion Gap 7 mmol/L (6-16); Blood Urea Nitrogen 31 mg/dL (8-24); Bun/Creatinine Ratio 29.8 (12.0-20.0); CO2, Blood 27 mmol/L (21-32); Calcium, Blood 9.1 mg/dL (8.5-10.1); Chloride, Blood 108 mmol/L (98-108); Creatinine, Blood 1.04 mg/dL (0.40-1.00); Glomerular Filtration Rate 54 (60-); Glucose, Blood 112 mg/dL (70-99); Phosphorus, Blood 3.8 mg/dL (2.5-4.9); Potassium, Blood 4.4 mmol/L (3.5-5.5); Sodium, Blood 142 mmol/L (136-145)
== END | disposition home or self-care (01) ==
LOC: LAB SHORT 13:23 → LAB 13:23
PROVIDERS: Internal Medicine Nephrology
DX: N18.30 Chronic kidney disease, stage 3 unspecified (principal); D63.1 Anemia in chronic kidney disease
CPT/HCPCS: 80069; 85018